=== PATIENT | female | born 1990 | race Caucasian/White ===

== ENCOUNTER 2016-12-16 21:10 | Inpatient (IN) | payer OTHER ==
[2016-12-16 22:43] VITALS: BMI 27.0
--- NOTE | 2016-12-16 23:00 | HP ---
COWS - Scale Resting Pulse: 1= NV 81-100 Sweatin= Chills/Flushing Restless Observation: 3= Extraneous Movement Pupil Size: 1= Pupils >than Normal Bone or Joint Aches: 1= Mild Discomfort Runny Nose/ Eye Tearin= Runny Nose/Eyes GI Upset > 30mins: 0= None Tremor Observation: 1= Tremor Cable, Not Seen Yawning Observation: 1= 1-2x During Session Anxiety or Irritability: 1=Feels Anxious/Irritable Goose Flesh Skin: 0=Smooth Skin COWS Score: 12 Admission ROS S - HPI Chief Complaint: WITHDRAWAL SYMPTOMS Allergies/Adverse Reactions: Allergies Allergy/AdvReac Type Severity Reaction Status Date / Time No Known Allergies Allergy Verified 12/16/16 22:55 History of Present Illness: 26 Y.O. WITH A 3 YEAR HISTORY OF HEROIN DEPENDENCE IS HERE SEEKING HER FIRST ADMISSION INTO DETOX. Exam Limitations: No Limitations - Ebola screening Have you traveled outside of the country in the last 21 days: No (N) Have you had contact with anyone from an Ebola affected area: No Have you been sick,other than usual withdrawal symptoms: No Do you have a fever: No - Review of Systems Constitutional: Chills, Diaphoresis, Loss of Appetite, Changes in sleep EENT: reports: Tearing Respiratory: reports: No Symptoms reported Cardiac: reports: Palpitations GI: reports: No Symptoms Reported : reports: No Symptoms Reported Musculoskeletal: reports: Back Pain, Neck Pain Integumentary: reports: No Symptoms Reported Neuro: reports: No Symptoms reported Endocrine: reports: No Symptoms Reported Hematology: reports: No Symptoms Reported Psychiatric: reports: Mood/Affect Appropiate, Anxious Other Systems: Reviewed and Negative Patient History - Patient Medical History Hx Anemia: No Hx Asthma: No Hx Chronic Obstructive Pulmonary Disease (COPD): No Hx Cancer: No Hx Cardiac Disorders: No Hx Congestive Heart Failure: No Hx Hypertension: No Hx Hypercholesterolemia: No Hx Pacemaker: No HX Cerebrovascular Accident: No Hx Seizures: No Hx Dementia: No Hx Diabetes: No Hx Gastrointestinal Disorders: No Hx Liver Disease: No Hx Genitourinary Disorders: No Hx Sexually Transmitted Disorders: No Hx Renal Disease (ESRD): No Hx Thyroid Disease: No Hx Human Immunodeficiency Virus (HIV): No Hx Hepatitis C: No Hx Depression: Yes (NO MEDS) Hx Suicide Attempt: Yes (NO MEDS ) Hx Bipolar Disorder: No Hx Schizophrenia: No - Patient Surgical History Past Surgical History: No - PPD History Previous Implant?: Yes Documented Results: Negative w/o proof PPD to be Administered?: Yes - Reproductive History Patient is a Female of Child Bearing Age (11 -55 yrs old): Yes Last Menstrual Period: 11/11/16 Patient : No - Smoking Cessation Smoking history: Current every day smoker Have you smoked in the past 12 months: Yes Aproximately how many cigarettes per day: 20 Hx Chewing Tobacco Use: No Initiated information on smoking cessation: Yes 'Breaking Loose' booklet given: 12/16/16 - Substance & Tx. History Hx Alcohol Use: No Hx Substance Use: Yes Substance Use Type: Heroin Hx Substance Use Treatment: No - Substances Abused Heroin Route: Injection Frequency: Daily Amount used: 5-10 BAGS Age of first use: 23 Date of Last Use: 12/16/16 Family Disease History - Family Disease History Family Disease History: Other: Father (ETOH DEPENDENCE ) Admission Physical Exam [facility] - Vital Signs Vital Signs: Vital Signs - 24 hr 12/16/16 22:40 Temperature 98.7 F Pulse Rate 89 Respiratory 18 Rate Blood Pressure 116/67 - Physical General Appearance: Yes: Anxious HEENTM: Yes: Hearing grossly Normal, Normocephalic, Normal Voice Respiratory: Yes: Chest Non-Tender, Lungs Clear, Normal Breath Sounds, No Respiratory Distress, No Accessory Muscle Use Neck: Yes: No masses,lesions,Nodules, Trachea in good position Breast: Yes: Breast Exam Deferred Cardiology: Yes: Regular Rhythm, Regular Rate Abdominal: Yes: Flat, Soft Genitourinary: Yes: Other (NO COMPLAINTS REPORTED) Back: Yes: Normal Inspection Musculoskeletal: Yes: Gait Steady, Pelvis Stable Extremities: Yes: Normal Capillary Refill, Normal Inspection, Normal Range of Motion, Non-Tender Neurological: Yes: texture artist II-XII NML intact, Fully Oriented, Alert, Normal Mood/ Affect, Normal Response Integumentary: Yes: Dry, Warm, Track Helms Lymphatic: Yes: Within Normal Limits - Diagnostic (1) Opioid dependence with withdrawal Current Visit: Yes Status: Chronic Cleared for Admission [facility] - Detox or Rehab [facility] Level of Care: Medically Managed Detox Regimen/Protocol: Methadone [facility] Breath Alcohol Content Breath Alcohol Content: 0 Urine Pregancy Test - Result Urine Test Results: Negative- NO Line Present Urine Drug Screen - Results Drug Screen Negative: No Urine Drug Screen Results: OPI-Opiates, BZO-Benzodiazepines, OXY-Oxycodone
[2016-12-16] MEDS ORDERED: MAGNESIUM HYDROX 2400MG/30ML ORAL SUSPENSION 30 ML CUP PO PRN (23:11)
[2016-12-16] MEDS ORDERED: IBUPROFEN 400 MG TABLET (FP) PO PRN (23:11)
[2016-12-16] MEDS ORDERED: MENTHOL/PHENOL 1 EACH UD MM PRN (23:11)
[2016-12-16] MEDS ORDERED: MAGNESIUM CITRATE 300 ML BOTTLE PO PRN (23:11)
[2016-12-16] MEDS ORDERED: LOPERAMIDE HCL 2 MG CAPSULE PO PRN (23:11)
[2016-12-16] MEDS ORDERED: guaiFENesin/D-METHORPHAN HB 10 ML UNIT-DOSE CUPS PO PRN (23:11)
[2016-12-16] MEDS ORDERED: ACETAMINOPHEN 325 MG TABLET (FP) PO PRN (23:11)
[2016-12-16] MEDS ORDERED: diphenhydrAMINE HCL 50 MG CAPSULE PO PRN (23:11)
[2016-12-16] MEDS ORDERED: MAG HYDROX/AL HYDROX/SIMETH 30 ML UNIT-DOSE CUP PO PRN (23:11)
[2016-12-16] MEDS ORDERED: P-EPHED 60MG/TRIPROLIDI 2.5MG TABLET PO PRN (23:11)
[2016-12-17] MEDS ORDERED: METHADONE HCL 10 MG TABLET (FOR DETOX USE ONLY) PO ONE ×3 (00:07→23:00)
[2016-12-17] MEDS: diazePAM 5 MG TABLET PO PRN ×5 (01:24→22:37)
[2016-12-17 10:12] LABS: MCH 30.1 pg (25.7-33.7); MCHC 34.9 g/dl (32.0-36.0); MEAN CELL VOLUME 86.3 fl (80-96); MEAN PLT VOLUME 9.6 fl (7.5-11.1); PLATELET COUNT 200 K/MM3 (134-434); RDW 13.1 % (11.6-15.6); WHITE BLOOD COUNT 6.3 K/mm3 (4.0-10.0)
[2016-12-17] MEDS: PRENATAL VITAMINS W/ FOLIC ACID TABLET (FP) PO SCH (10:38)
[2016-12-17] MEDS: NICOTINE 21 MG/24 HOURS TOPICAL PATCH TD SCH (10:38)
[2016-12-17 10:52] LABS: ALBUMIN 3.4 g/dl (3.4-5.0); ALK PHOS 80 U/L (45-117); ANION GAP 10 (8-16); BILIRUBIN,TOTAL 0.4 mg/dL (0.2-1.0); CALCIUM 9.2 mg/dL (8.5-10.1); CO2 26 mmol/L (21-32); COCKROFT - GAULT 118.9065; CREATININE 0.7 mg/dL (0.55-1.02); GLUCOSE,RANDOM 112 mg/dL (74-106); SGOT/AST 12 U/L (15-37); SGPT/ALT 19 U/L (12-78)
--- NOTE | 2016-12-17 11:34 | CONSULT ---
[facility] Psychiatric Consult - Data Date of interview: 12/17/16 Admission source: [facility] Identifying data: First admission to [facility] for this 26 y/o female seeking detox treatment for heroin dependence.Patient is single without children ,domiciled,currently unemployed and supported by relatives. Substance Abuse History: - Smoking Cessation. Smoking history: Current every day smoker. Have you smoked in the past 12 months: Yes. Aproximately how many cigarettes per day: 20. Hx Chewing Tobacco Use: No. Initiated information on smoking cessation: Yes. 'Breaking Loose' booklet given: 12/16/16. - Substance & Tx. History. Hx Alcohol Use: No. Hx Substance Use: Yes. Substance Use Type : Heroin. Hx Substance Use Treatment: No. - Substances Abused. Heroin. Route: Injection. Frequency: Daily. Amount used: 5-10 BAGS. Age of first use : 23. Date of Last Use: 12/16/16. Confirmed by patient. Medical History: Patient endorses good general health. Psychiatric History: No reported history of psychiatric hospitalizations.Patient indicates that,three years ago,she sought a psychiatric consultation for anxiety/depression (one or two visits).No prior exposure to psychotropic medications.Ms Keane denies any further contact wit psychiatric OPD care providers.No history of suicide attempts. Physical/Sexual Abuse/Trauma History: Patient denies. Additional Comment: Urine Drug Screen Results: OPI-Opiates, BZO-Benzodiazepines , OXY-Oxycodone.Noted. Mental Status Exam - Mental Status Exam Alert and Oriented to: Time, Place, Person Cognitive Function: Good Patient Appearance: Well Groomed Mood: Hopeful, Euthymic Affect: Appropriate, Normal Range Patient Behavior: Appropriate, Cooperative Speech Pattern: Clear Voice Loudness: Normal Thought Process: Goal Oriented Thought Disorder: Not Present Hallucinations: Denies Suicidal Ideation: Denies Homicidal Ideation: Denies Insight/Judgement: Fair Sleep: Poorly, Difficulty falling asleep Appetite: Good Muscle strength/Tone: Normal Gait/Station: Normal Psychiatric Findings - Problem List ([place] 1, 2,3) (1) Opioid dependence with withdrawal Current Visit: Yes Status: Acute (2) Nicotine dependence Current Visit: Yes Status: Acute (3) Insomnia Current Visit: Yes Status: Acute - Initial Treatment Plan Initial Treatment Plan: Psychoeducation.Detoxification.Chronic insomnia will be addressed with trazodone 50 mg po hs.Side effects/benefits discussed with the patient.She is in agreement with this careplan.Observation.
--- NOTE | 2016-12-17 12:01 | PN ---
BHS COWS - Scale Resting Pulse: 0= MS 80 or Below Sweatin=Flushed/Facial Moisture Restless Observation: 1= Difficult to Sit Still Pupil Size: 0= Normal to Room Light Bone or Joint Aches: 2= Severe Diffuse Aches Runny Nose/ Eye Tearin= None GI Upset > 30mins: 0= None Tremor Observation of Outstretched Hands: 2= Slight Tremor Visible Yawning Observation: 1= 1-2x During Session Anxiety or Irritability: 2=Irritable/Anxious Goose Flesh Skin: 3=Piloerection COWS Score: 13 BHS Progress Note (SOAP) Subjective: agitation sweats irritable chills interrupted sleep Objective: 12/17/16 12:00 Vital Signs Temperature 97.9 F 12/17/16 10:54 Pulse Rate 71 12/17/16 10:54 Respiratory Rate 16 12/17/16 10:54 Blood Pressure 112/75 12/17/16 10:54 O2 Sat by Pulse Oximetry (%) Laboratory Tests 12/17/16 12/17/16 12/17/16 07:00 07:00 07:00 WBC 6.3 RBC 4.37 Hgb 13.2 Hct 37.7 MCV 86.3 MCHC 34.9 RDW 13.1 Plt Count 200 MPV 9.6 Sodium 141 Potassium 4.0 Chloride 105 Carbon Dioxide 26 Anion Gap 10 BUN 9 Creatinine 0.7 Creat Clearance w eGFR > 60 Random Glucose 112 H Calcium 9.2 Total Bilirubin 0.4 AST 12 L ALT 19 Alkaline Phosphatase 80 Total Protein 6.0 L Albumin 3.4 RPR Titer Nonreactive labs pending awake/alert ambulating no acute distress Assessment: 12/17/16 12:01 withdrawal sx Plan: continue detox increase fluids
[2016-12-17 14:42] LABS: URINE APPEARANCE CLEAR; URINE BILIRUBIN NEGATIVE (NEGATIVE); URINE BLOOD NEGATIVE (NEGATIVE); URINE COLOR YELLOW; URINE GLUCOSE (UA) NEGATIVE (NEGATIVE); URINE KETONE NEGATIVE (NEGATIVE); URINE NITRITE NEGATIVE (NEGATIVE); URINE PROTEIN NEGATIVE (NEGATIVE); URINE UROBILINOGEN NEGATIVE E.U./dl (0.2-1.0)
[2016-12-17 14:55] LABS: URINE LEUK ESTERASE TRACE (NEGATIVE)
[2016-12-17 15:46] LABS: URINE BACTERIA MANY /hpf (NONE SEEN); URINE MUCUS MANY; URINE RBC 3 /hpf (0-3); URINE WBC 7 /hpf (3-5)
[2016-12-17] MEDS: THIAMINE HCL 100 MG TABLET (FP) PO SCH (22:37)
[2016-12-17] MEDS: traZODone HCL 50 MG TABLET (FP) PO SCH (22:37)
[2016-12-18] MEDS ORDERED: METHADONE HCL 10 MG TABLET (FOR DETOX USE ONLY) PO ONE (10:00)
[2016-12-18] MEDS: PRENATAL VITAMINS W/ FOLIC ACID TABLET (FP) PO SCH (11:08)
[2016-12-18] MEDS: NICOTINE 21 MG/24 HOURS TOPICAL PATCH TD SCH (11:09)
[2016-12-18] MEDS: diazePAM 5 MG TABLET PO PRN ×4 (11:11→23:21)
--- NOTE | 2016-12-18 11:27 | PN ---
BHS COWS - Scale Resting Pulse: 0= NE 80 or Below Sweatin=Flushed/Facial Moisture Restless Observation: 1= Difficult to Sit Still Pupil Size: 0= Normal to Room Light Bone or Joint Aches: 2= Severe Diffuse Aches Runny Nose/ Eye Tearin= Nasal Congestion GI Upset > 30mins: 0= None Tremor Observation of Outstretched Hands: 2= Slight Tremor Visible Yawning Observation: 0= None Anxiety or Irritability: 2=Irritable/Anxious Goose Flesh Skin: 0=Smooth Skin COWS Score: 10 S Progress Note (SOAP) Subjective: sweats mild shakes interrupted sleep mild body aches Objective: 12/18/16 11:33 Vital Signs Temperature 98.2 F 12/18/16 10:14 Pulse Rate 69 12/18/16 10:14 Respiratory Rate 16 12/18/16 10:14 Blood Pressure 129/55 12/18/16 10:14 O2 Sat by Pulse Oximetry (%) Laboratory Tests 12/17/16 12/17/16 12/17/16 07:00 07:00 07:00 WBC 6.3 RBC 4.37 Hgb 13.2 Hct 37.7 MCV 86.3 MCHC 34.9 RDW 13.1 Plt Count 200 MPV 9.6 Sodium 141 Potassium 4.0 Chloride 105 Carbon Dioxide 26 Anion Gap 10 BUN 9 Creatinine 0.7 Creat Clearance w eGFR > 60 Random Glucose 112 H Calcium 9.2 Total Bilirubin 0.4 AST 12 L ALT 19 Alkaline Phosphatase 80 Total Protein 6.0 L Albumin 3.4 Urine Color Urine Appearance Urine pH Ur Specific [place] Urine Protein Urine Glucose (UA) Urine Ketones Urine Blood Urine Nitrite Urine Bilirubin Urine Urobilinogen Ur Leukocyte Esterase Urine RBC Urine WBC Ur Epithelial Cells Urine Bacteria Urine Mucus RPR Titer Nonreactive 12/17/16 10:45 WBC RBC Hgb Hct MCV MCHC RDW Plt Count MPV Sodium Potassium Chloride Carbon Dioxide Anion Gap BUN Creatinine Creat Clearance w eGFR Random Glucose Calcium Total Bilirubin AST ALT Alkaline Phosphatase Total Protein Albumin Urine Color Yellow Urine Appearance Clear Urine pH 5.0 Ur Specific [place] 1.025 Urine Protein Negative Urine Glucose (UA) Negative Urine Ketones Negative Urine Blood Negative Urine Nitrite Negative Urine Bilirubin Negative Urine Urobilinogen Negative Ur Leukocyte Esterase Trace H Urine RBC 3 Urine WBC 7 Ur Epithelial Cells Rare Urine Bacteria Many Urine Mucus Many RPR Titer awake/alert ambulating no acute distress Assessment: 12/18/16 11:34 withdrawal sx Plan: continue detox increase fluids
--- NOTE | 2016-12-18 11:40 | EKG ---
Test Reason : Blood Pressure : / mmHG Vent. Rate : 068 BPM Atrial Rate : 068 BPM P-R Int : 174 ms QRS Dur : 084 ms QT Int : 376 ms P-R-T Axes : 029 032 036 degrees QTc Int : 399 ms SINUS RHYTHM WITH MARKED SINUS ARRHYTHMIA OTHERWISE NORMAL ECG NO PREVIOUS ECGS AVAILABLE Confirmed by MATTY MONTENEGRO, LORI ([id number]) on 12/18/2016 11:40:16 AM Referred By: Confirmed By:LORI STARR MD
[2016-12-18] MEDS: NICOTINE POLACRILEX 2 MG GUM BC PRN ×2 (12:45→17:43)
[2016-12-18] MEDS: hydrOXYzine PAMOATE 50 MG CAPSULE (FP) PO PRN ×2 (17:43→23:21)
[2016-12-18] MEDS: traZODone HCL 50 MG TABLET (FP) PO SCH (22:57)
[2016-12-18] MEDS: THIAMINE HCL 100 MG TABLET (FP) PO SCH (22:58)
[2016-12-19] MEDS: diazePAM 5 MG TABLET PO PRN ×5 (05:50→23:11)
[2016-12-19] MEDS: NICOTINE POLACRILEX 2 MG GUM BC PRN ×3 (08:53→18:56)
[2016-12-19] MEDS ORDERED: METHADONE HCL 5 MG TABLET (FOR DETOX USE ONLY) PO ONE (10:00)
--- NOTE | 2016-12-19 10:25 | PN ---
Psychiatric Progress Note Vital Signs: Vital Signs Period Temp Pulse Resp BP Sys/Lindsay Pulse Ox Last 24 Hr 96.1 F-98.1 F 57-92 16-18 94-120/59-64 Date of Session: 12/19/16 Chief Complaint:: Insomnia HPI: Patient reports severe insomnia, reports has been taking prior to admission Ambien 10mg pom qhs Current Medications: Active Medications Generic Name Dose Route Start Last Admin Trade Name Freq PRN Reason Stop Dose Admin Acetaminophen 650 mg 12/16/16 23:11 Tylenol - PO Q4H PRN FEVER OR PAIN Al Hydroxide/Mg Hydroxide 30 ml 12/16/16 23:11 Mylanta Oral Suspension - PO Q6H PRN DYSPEPSIA Diazepam 10 mg 12/17/16 00:07 12/19/16 05:50 Valium - PO 12/20/16 00:06 10 mg Q4H PRN Administration WITHDRAWAL(CONT SUBST) Diphenhydramine HCl 50 mg 12/16/16 23:11 12/18/16 22:57 Benadryl - PO 50 mg HSMR1 PRN Administration INSOMNIA Eucalyptus/Menthol/Phenol/Sorbitol 1 each 12/16/16 23:11 Cepastat Lozenge - MM Q4H PRN SORE THROAT Guaifenesin 10 ml 12/16/16 23:11 Robitussin Dm - PO Q6H PRN COUGH Hydroxyzine Pamoate 50 mg 12/16/16 23:11 12/18/16 23:21 Vistaril - PO 50 mg Q4H PRN Administration AGITATION Ibuprofen 400 mg 12/16/16 23:11 Motrin - PO Q6H PRN SEVERE PAIN Loperamide HCl 4 mg 12/16/16 23:11 Imodium - PO Q6H PRN DIARRHEA Magnesium Citrate 300 ml 12/16/16 23:11 Citroma - PO Q48H PRN CONSTIPATION Magnesium Hydroxide 30 ml 12/16/16 23:11 Milk Of Magnesia - PO DAILY PRN CONSTIPATION Methadone HCl 10 mg 12/21/16 10:00 Dolophine - PO 12/21/16 10:01 ONCE ONE Methadone HCl 15 mg 12/20/16 10:00 Dolophine - PO 12/20/16 10:01 ONCE ONE Methadone HCl 5 mg 12/22/16 06:00 Dolophine - PO 12/22/16 06:01 ONCE@0600 ONE Nicotine 21 mg 12/17/16 10:00 12/18/16 11:09 Nicoderm Patch - TD 21 mg DAILY JOE Administration Nicotine Polacrilex 2 mg 12/16/16 23:11 12/19/16 08:53 Nicorette Gum - BC 2 mg Q2H PRN Administration NICOTINE REPLACEMENT RX Multivit/Folic Acid/Iron 1 tab 12/17/16 10:00 12/18/16 11:08 Vitamins (Sjr) - PO 1 tab DAILY JOE Administration Pseudoephedrine/Triprolidine 1 combo 12/16/16 23:11 Actifed - PO TID PRN NASAL CONGESTION Thiamine HCl 100 mg 12/17/16 22:00 12/18/16 22:58 Vitamin B1 - PO 100 mg HS JOE Administration Trazodone HCl 50 mg 12/17/16 22:00 12/18/16 22:57 Desyrel - PO 50 mg HS JOE Administration Zolpidem Tartrate 10 mg 12/19/16 22:00 Ambien - PO 12/22/16 21:59 HS PRN INSOMNIA Medication(s) Change(s): Ambien 10mg pom qhs Mental Status Exam - Mental Status Exam Alert and Oriented to: Person Cognitive Function: Fair Patient Appearance: Unkempt Mood: Anxious Affect: Mood Congruent Patient Behavior: Cooperative Speech Pattern: Appropriate Voice Loudness: Mildly Soft/Quiet Thought Process: Goal Oriented Thought Disorder: Being Controlled Hallucinations: Denies Suicidal Ideation: Denies Homicidal Ideation: Denies Insight/Judgement: Fair Sleep: Difficulty falling asleep Appetite: Weight gain Muscle strength/Tone: Normal Gait/Station: Shuffling Additional Comments: Ambien 10mg pom qhs Psychiatric Treatment Plan - Problem List (1) Insomnia Current Visit: Yes (2) Nicotine dependence Current Visit: Yes (3) Opioid dependence with withdrawal Current Visit: Yes (4) Opioid-induced sleep disorder, insomnia type, with onset during discontinuation/withdrawal Current Visit: Yes (5) Drug-induced mood disorder Current Visit: Yes Initial treatment plan: Ambien 10mg pom qhs
[2016-12-19] MEDS: PRENATAL VITAMINS W/ FOLIC ACID TABLET (FP) PO SCH (10:43)
[2016-12-19] MEDS: NICOTINE 21 MG/24 HOURS TOPICAL PATCH TD SCH (10:45)
--- NOTE | 2016-12-19 11:25 | PN ---
BHS Progress Note (SOAP) Subjective: irritable sweats little shakes chills interrupted sleep Objective: 12/19/16 11:24 Vital Signs Temperature 97.3 F L 12/19/16 09:54 Pulse Rate 90 12/19/16 09:54 Respiratory Rate 18 12/19/16 09:54 Blood Pressure 102/60 12/19/16 09:54 O2 Sat by Pulse Oximetry (%) awake/alert ambulating no acute distress Assessment: 12/19/16 11:25 withdrawal sx Plan: continue detox increase fluids
[2016-12-19] MEDS: QUEtiapine FUMARATE 50 MG TABLET PO PRN ×2 (12:42→18:56)
[2016-12-19] MEDS: THIAMINE HCL 100 MG TABLET (FP) PO SCH (22:28)
[2016-12-19] MEDS: ZOLPIDEM TARTRATE 10 MG TABLET (PARK CARE ONLY) PO PRN (22:28)
[2016-12-19] MEDS: traZODone HCL 50 MG TABLET (FP) PO SCH (22:28)
[2016-12-20] MEDS ORDERED: METHADONE HCL 5 MG TABLET (FOR DETOX USE ONLY) PO ONE (10:00)
--- NOTE | 2016-12-20 10:53 | PN ---
BHS Progress Note (SOAP) Subjective: irritable agitation sweats Objective: 12/20/16 10:52 Vital Signs Temperature 97.5 F L 12/20/16 10:20 Pulse Rate 78 12/20/16 10:20 Respiratory Rate 18 12/20/16 10:20 Blood Pressure 113/65 12/20/16 10:20 O2 Sat by Pulse Oximetry (%) awake/alert ambulating no acute distress Assessment: 12/20/16 10:52 withdrawal sx Plan: continue detox increase fluids
[2016-12-20] MEDS: PRENATAL VITAMINS W/ FOLIC ACID TABLET (FP) PO SCH (11:04)
[2016-12-20] MEDS: QUEtiapine FUMARATE 50 MG TABLET PO PRN ×3 (11:05→22:41)
[2016-12-20] MEDS: NICOTINE POLACRILEX 2 MG GUM BC PRN ×4 (11:06→22:42)
[2016-12-20] MEDS: NICOTINE 21 MG/24 HOURS TOPICAL PATCH TD SCH (11:08)
[2016-12-20] MEDS: hydrOXYzine PAMOATE 50 MG CAPSULE (FP) PO PRN ×2 (14:14→19:59)
[2016-12-20] MEDS: traZODone HCL 50 MG TABLET (FP) PO SCH (22:40)
[2016-12-20] MEDS: ZOLPIDEM TARTRATE 10 MG TABLET (PARK CARE ONLY) PO PRN (22:40)
[2016-12-20] MEDS: THIAMINE HCL 100 MG TABLET (FP) PO SCH (22:41)
[2016-12-21] MEDS: QUEtiapine FUMARATE 50 MG TABLET PO PRN (05:41)
[2016-12-21 06:28] VITALS: BP 107/58; PULSE 88; TEMP 98.1
[2016-12-21] MEDS ORDERED: METHADONE HCL 10 MG TABLET (FOR DETOX USE ONLY) PO ONE (10:00)
[2016-12-21] MEDS: hydrOXYzine PAMOATE 50 MG CAPSULE (FP) PO PRN (10:36)
[2016-12-21] MEDS: NICOTINE POLACRILEX 2 MG GUM BC PRN (10:36)
[2016-12-21] MEDS: PRENATAL VITAMINS W/ FOLIC ACID TABLET (FP) PO SCH (10:36)
[2016-12-21] MEDS: NICOTINE 21 MG/24 HOURS TOPICAL PATCH TD SCH (10:38)
--- NOTE | 2016-12-21 10:49 | PN ---
S Progress Note (SOAP) Subjective: ALERT,NO COMPLAINT Objective: 12/21/16 10:47 Vital Signs Temperature 98.1 F 12/21/16 06:27 Pulse Rate 88 12/21/16 06:27 Respiratory Rate 18 12/21/16 06:27 Blood Pressure 107/58 12/21/16 06:27 O2 Sat by Pulse Oximetry (%) Assessment: 12/21/16 10:47 PATENT IS STABLE FOR DISCHARGE Plan: DISCHARGE TODAY,FOLLOW UP WITH AFTER CARE PROGRAM ARRANGEMENT
--- NOTE | 2016-12-21 10:52 | DS ---
[facility] Detox Discharge Summary Admission Date: 12/16/16 Discharge Date: 12/21/16 - History Present History: Opioid Dependence Additional Comments: FOLLOW UP WITH AFTER CARE PROGRAM ARRANGEMENT Pertinent Past History: NICOTINE DEPENDENCE - Physical Exam Results Vital Signs: Vital Signs Temperature 98.1 F 12/21/16 06:27 Pulse Rate 88 12/21/16 06:27 Respiratory Rate 18 12/21/16 06:27 Blood Pressure 107/58 12/21/16 06:27 O2 Sat by Pulse Oximetry (%) Pertinent Admission Physical Exam Findings: WITHDRAWAL SYMPTOM - Treatment Hospital Course: Detox Protocol Followed, Detoxed Safely, Responded well, Discharged Condition Good Patient has Accepted a Rehab Referral to: DECLINED - Medication Discharge Medications: Ambulatory Orders NK [No Known Home Medication] 12/17/16 - AMA Did Patient Leave Against Medical Advice: No
[2016-12-22] MEDS ORDERED: METHADONE HCL 5 MG TABLET (FOR DETOX USE ONLY) PO ONE (06:00)
== END 2016-12-21 11:15 | disposition home or self-care (01) | DRG 773 ==
LOC: YASAS 21:10 → Y6N 23:12
PROVIDERS: ADMIT Internal Medicine; ATTEND Internal Medicine
PROC: HZ2ZZZZ Detoxification Services for Substance Abuse Treatment (ICD-10-PCS; principal; 2016-12-16)
DX: F11.23 Opioid dependence with withdrawal (principal); F11.282 Opioid dependence with opioid-induced sleep disorder; F17.210 Nicotine dependence, cigarettes, uncomplicated; F19.24 Other psychoactive substance dependence with psychoactive substance-induced mood disorder; G47.00 Insomnia, unspecified
CPT/HCPCS: 36415; 80053; 81003; 81015; 85027; 86593; 93005; 93010

== ENCOUNTER 2017-01-29 08:19 | Inpatient (IN) | payer OTHER ==
[2017-01-29 09:45] VITALS: BMI 28.2
--- NOTE | 2017-01-29 12:44 | HP ---
COWS - Scale Resting Pulse: 0= MS 80 or Below Sweatin= Chills/Flushing Restless Observation: 3= Extraneous Movement Pupil Size: 0= Normal to Room Light Bone or Joint Aches: 4=Acute Joint/Muscle Pain Runny Nose/ Eye Tearin= Nasal Congestion GI Upset > 30mins: 0= None Tremor Observation: 1= Tremor [place], Not Seen Yawning Observation: 2= >3x During Session Anxiety or Irritability: 2=Irritable/Anxious Goose Flesh Skin: 0=Smooth Skin COWS Score: 14 Admission ROS S - HPI Chief Complaint: DETOX TX FOR HEROIN DEPENDENCE Allergies/Adverse Reactions: Allergies Allergy/AdvReac Type Severity Reaction Status Date / Time No Known Allergies Allergy Verified 01/29/17 10:35 History of Present Illness: 26 Y/O FEMALE WITH A HX OF HEROIN DEPENDENCE SEEKING DETOX [place] Exam Limitations: No Limitations - Ebola screening Have you traveled outside of the country in the last 21 days: No Have you had contact with anyone from an Ebola affected area: No Have you been sick,other than usual withdrawal symptoms: No Do you have a fever: No - Review of Systems Constitutional: Chills, Night Sweats, Changes in sleep ("WHEN NOT I'M NOT HIGH") EENT: reports: Blurred Vision (WEARS CONTACT LENSES), Tearing, Nose Congestion, Dental Problems (CRACKED TOOTH/CAVITY) Respiratory: reports: Cough (DUE TO CIGARETTE SMOKING), Productive cough Cardiac: reports: No Symptoms Reported GI: reports: Constipated, Abdominal cramping : reports: No Symptoms Reported Musculoskeletal: reports: Back Pain, Joint Pain, Muscle Pain Integumentary: reports: Bruising (IVD INJ SITES ON BOTH ELBOWS) Neuro: reports: Headache (HX MIGRAINES), Numbness, Tingling, Tremors Endocrine: reports: No Symptoms Reported Hematology: reports: No Symptoms Reported Psychiatric: reports: Orientated x3, Anxious, Depressed Other Systems: Reviewed and Negative Patient History - Patient Medical History Hx Anemia: No Hx Asthma: No Hx Chronic Obstructive Pulmonary Disease (COPD): No Hx Cancer: No Hx Cardiac Disorders: No Hx Congestive Heart Failure: No Hx Hypertension: No Hx Hypercholesterolemia: No Hx Pacemaker: No HX Cerebrovascular Accident: No Hx Seizures: No Hx Dementia: No Hx Diabetes: No Hx Gastrointestinal Disorders: No Hx Liver Disease: No Hx Genitourinary Disorders: No Hx Sexually Transmitted Disorders: No Hx Renal Disease (ESRD): No Hx Thyroid Disease: No Hx Human Immunodeficiency Virus (HIV): No (NEGATIVE HX) Hx Hepatitis C: No Hx Depression: Yes (NOT CURRENTLY ON MED) Hx Suicide Attempt: No (DENIES) Hx Bipolar Disorder: No Hx Schizophrenia: No - Patient Surgical History Past Surgical History: No Hx Neurologic Surgery: No Hx Cataract Extraction: No Hx Cardiac Surgery: No Hx Lung Surgery: No Hx Breast Surgery: No Hx Breast Biopsy: No Hx Abdominal Surgery: No Hx Appendectomy: No Hx Cholecystectomy: No Hx Genitourinary Surgery: No Hx Section: No Hx Orthopedic Surgery: No Hx Hysterectomy: No Anesthesia Reaction: No - PPD History Previous Implant?: Yes Documented Results: Negative w/proof Implanted On Prior [facility] Admission?: Yes Date: 12/19/16 Results: 0 MM PPD to be Administered?: No - Reproductive History Patient is a Female of Child Bearing Age (11 -55 yrs old): Yes Last Menstrual Period: 12/12/16 LMP comment: IRRGULAR CYCLE-EVERY OTHER MONTH Patient : No - Smoking Cessation Smoking history: Current every day smoker Have you smoked in the past 12 months: Yes Aproximately how many cigarettes per day: 20 Hx Chewing Tobacco Use: No Initiated information on smoking cessation: Yes 'Breaking Loose' booklet given: 01/29/17 - Substance & Tx. History Hx Alcohol Use: No (DENIES) Hx Substance Use: Yes (HEROIN) Substance Use Type: Heroin Hx Substance Use Treatment: Yes (LAST TX AT [facility] 12/2016) - Substances Abused Heroin Route: Injection Frequency: Daily Amount used: 5 BAGS Age of first use: 23 Date of Last Use: 01/29/17 Family Disease History - Family Disease History Family Disease History: Other: Father (ETOH DEPENDENCE ) Admission Physical Exam BHS - Vital Signs Vital Signs: Vital Signs - 24 hr 01/29/17 09:36 Temperature 97.7 F Pulse Rate 71 Respiratory 18 Rate Blood Pressure 113/69 - Physical General Appearance: Yes: Moderate Distress, Irritable, Anxious HEENTM: Yes: EOMI, Normocephalic, ABEL, Pharynx Normal Respiratory: Yes: Chest Non-Tender, Lungs Clear, Normal Breath Sounds, No Respiratory Distress Neck: Yes: No masses,lesions,Nodules, Supple, Trachea in good position Breast: Yes: Breast Exam Deferred Cardiology: Yes: Regular Rhythm, Regular Rate, S1, S2 Abdominal: Yes: Normal Bowel Sounds, Non Tender, Flat, Soft Genitourinary: Yes: Other (N/C) Back: Yes: Within Normal Limits Musculoskeletal: Yes: full range of Motion, Gait Steady Extremities: Yes: Normal Range of Motion, Non-Tender Neurological: 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: 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 NML intact, Fully Oriented, Alert Integumentary: Yes: Dry, Warm, Track Helms (BOTH ELBOWS-NO REDNESS OR SWELLING.) Lymphatic: Yes: Within Normal Limits - Diagnostic (1) Nicotine dependence Status: Acute Qualifiers: Nicotine product type: cigarettes Substance use status: in withdrawal Qualified Code(s): F17.213 - Nicotine dependence, cigarettes, with withdrawal (2) Opioid dependence with withdrawal Status: Acute Cleared for Admission [facility] - Detox or Rehab [facility] Level of Care: Medically Managed Detox Regimen/Protocol: Methadone [facility] Breath Alcohol Content Breath Alcohol Content: 0 Urine Pregancy Test - Result Urine Test Results: Negative- NO Line Present Urine Drug Screen - Results Drug Screen Negative: No Urine Drug Screen Results: OPI-Opiates, OXY-Oxycodone
[2017-01-29] MEDS ORDERED: LOPERAMIDE HCL 2 MG CAPSULE PO PRN (12:52)
[2017-01-29] MEDS ORDERED: P-EPHED 60MG/TRIPROLIDI 2.5MG TABLET PO PRN (12:52)
[2017-01-29] MEDS ORDERED: MAGNESIUM CITRATE 300 ML BOTTLE PO PRN (12:52)
[2017-01-29] MEDS ORDERED: MAG HYDROX/AL HYDROX/SIMETH 30 ML UNIT-DOSE CUP PO PRN (12:52)
[2017-01-29] MEDS ORDERED: MENTHOL/PHENOL 1 EACH UD MM PRN (12:52)
[2017-01-29] MEDS ORDERED: diphenhydrAMINE HCL 50 MG CAPSULE PO PRN (12:52)
[2017-01-29] MEDS ORDERED: guaiFENesin/D-METHORPHAN HB 10 ML UNIT-DOSE CUPS PO PRN (12:52)
[2017-01-29] MEDS ORDERED: IBUPROFEN 400 MG TABLET (FP) PO PRN (12:52)
[2017-01-29] MEDS ORDERED: MAGNESIUM HYDROX 2400MG/30ML ORAL SUSPENSION 30 ML CUP PO PRN (12:52)
[2017-01-29] MEDS ORDERED: ACETAMINOPHEN 325 MG TABLET (FP) PO PRN (12:52)
[2017-01-29] MEDS ORDERED: METHADONE HCL 10 MG TABLET (FOR DETOX USE ONLY) PO ONE ×2 (13:50→23:00)
[2017-01-29] MEDS: NICOTINE 21 MG/24 HOURS TOPICAL PATCH TD SCH (14:14)
[2017-01-29] MEDS: diazePAM 5 MG TABLET PO PRN ×2 (14:14→22:47)
[2017-01-29 17:14] LABS: MCHC 33.4 g/dl (32.0-36.0); MEAN CELL VOLUME 86.7 fl (80-96); MEAN PLT VOLUME 9.4 fl (7.5-11.1); PLATELET COUNT 233 K/MM3 (134-434); RDW 13.5 % (11.6-15.6)
[2017-01-29 17:42] LABS: URINE APPEARANCE CLEAR; URINE BILIRUBIN NEGATIVE (NEGATIVE); URINE BLOOD NEGATIVE (NEGATIVE); URINE COLOR YELLOW; URINE GLUCOSE (UA) NEGATIVE (NEGATIVE); URINE KETONE TRACE (NEGATIVE); URINE LEUK ESTERASE NEGATIVE (NEGATIVE); URINE NITRITE NEGATIVE (NEGATIVE); URINE PROTEIN NEGATIVE (NEGATIVE)
[2017-01-29 17:50] LABS: ALBUMIN 4.1 g/dl (3.4-5.0); ANION GAP 7 (8-16); CALCIUM 9.2 mg/dL (8.5-10.1); CO2 27 mmol/L (21-32); GLUCOSE,RANDOM 97 mg/dL (74-106)
[2017-01-29 17:55] LABS: ALK PHOS 80 U/L (45-117); BILIRUBIN,TOTAL 0.6 mg/dL (0.2-1.0); CREATININE 0.7 mg/dL (0.55-1.02); SGOT/AST 17 U/L (15-37); SGPT/ALT 19 U/L (12-78); TOT PROT 6.8 g/dl (6.4-8.2)
[2017-01-29] MEDS: CYCLOBENZAPRINE HCL 10 MG TABLET (FP) PO PRN (22:47)
[2017-01-29] MEDS: THIAMINE HCL 100 MG TABLET (FP) PO SCH (22:47)
[2017-01-29] MEDS: NICOTINE POLACRILEX 4 MG GUM BUC PRN (23:16)
[2017-01-30] MEDS ORDERED: METHADONE HCL 10 MG TABLET (FOR DETOX USE ONLY) PO ONE (10:00)
--- NOTE | 2017-01-30 10:04 | CONSULT ---
[facility] Psychiatric Consult - Data Date of interview: 01/30/17 Admission source: [facility] Identifying data: This is 26 years old female with no psychiatric hospitalization history intoxicated with: Heroin and Nicotine Substance Abuse History: - Smoking Cessation. Smoking history: Current every day smoker. Have you smoked in the past 12 months: Yes. Aproximately how many cigarettes per day: 20. Hx Chewing Tobacco Use: No. Initiated information on smoking cessation: Yes. 'Breaking Loose' booklet given: 01/29/17. - Substance & Tx. History. Hx Alcohol Use: No (DENIES). Hx Substance Use: Yes (HEROIN). Substance Use Type: Heroin. Hx Substance Use Treatment: Yes (LAST [place] AT [facility] 12/2016). - Substances Abused. Heroin. Route: Injection. Frequency: Daily. Amount used: 5 BAGS. Age of first use: 23. Date of Last Use: 01/29/ Medical History: Denies any significant medical issues Psychiatric History: Patient reprots insomnia, asking for Ambien 10mg po qhs she has been using prior to admission Physical/Sexual Abuse/Trauma History: Denies Additional Comment: Ambien 10mg po qhs Mental Status Exam - Mental Status Exam Alert and Oriented to: Person Cognitive Function: Fair Patient Appearance: Well Groomed Mood: Apprehensive Affect: Mood Congruent Patient Behavior: Cooperative Speech Pattern: Appropriate Voice Loudness: Normal Thought Process: Goal Oriented Thought Disorder: Being Controlled Hallucinations: Denies Suicidal Ideation: Denies Homicidal Ideation: Denies Insight/Judgement: Fair Sleep: Difficulty falling asleep Appetite: Fair Muscle strength/Tone: Normal Gait/Station: Normal Additional Comments: Ambien 10mg po qhs Psychiatric Findings - Problem List ([place] 1, 2,3) (1) Nicotine dependence Current Visit: Yes Status: Acute Qualifiers: Nicotine product type: cigarettes Substance use status: in withdrawal Qualified Code(s): F17.213 - Nicotine dependence, cigarettes, with withdrawal (2) Opioid dependence with withdrawal Current Visit: Yes Status: Acute (3) Drug-induced mood disorder Current Visit: No Status: Acute (4) Opioid-induced sleep disorder, insomnia type, with onset during discontinuation/withdrawal Current Visit: No Status: Acute - Initial Treatment Plan Initial Treatment Plan: Ambien 10mg po qhs
[2017-01-30] MEDS: NICOTINE 21 MG/24 HOURS TOPICAL PATCH TD SCH (10:52)
[2017-01-30] MEDS: PRENATAL VITAMINS W/ FOLIC ACID TABLET (FP) PO SCH (10:52)
[2017-01-30] MEDS: diazePAM 5 MG TABLET PO PRN ×3 (10:53→22:52)
[2017-01-30] MEDS: NICOTINE POLACRILEX 4 MG GUM BUC PRN ×3 (10:58→18:05)
--- NOTE | 2017-01-30 12:50 | PN ---
BHS COWS - Scale Resting Pulse: 0= [place] 80 or Below Sweatin= Chills/Flushing Restless Observation: 3= Extraneous Movement Pupil Size: 1= Pupils >than Normal Bone or Joint Aches: 2= Severe Diffuse Aches Runny Nose/ Eye Tearin= Runny Nose/Eyes GI Upset > 30mins: 3= Vomiting/Diarrhea Tremor Observation of Outstretched Hands: 2= Slight Tremor Visible Yawning Observation: 1= 1-2x During Session Anxiety or Irritability: 2=Irritable/Anxious Goose Flesh Skin: 0=Smooth Skin COWS Score: 17 S Progress Note (SOAP) Subjective: ALERT,IRRITABLE,ANXIOUS,INTERRUPTED SLEEP,PAIN IN THE BODY AND BACK Objective: 01/30/17 12:48 Vital Signs Temperature 96.6 F L 01/30/17 10:00 Pulse Rate 78 01/30/17 10:00 Respiratory Rate 18 01/30/17 10:00 Blood Pressure 121/69 01/30/17 10:00 O2 Sat by Pulse Oximetry (%) EKG NSR,NORMAL ECG Laboratory Last Values WBC 6.0 K/mm3 (4.0-10.0) 01/29/17 15:00 RBC 4.78 M/mm3 (3.60-5.2) 01/29/17 15:00 Hgb 13.9 GM/dL (10.7-15.3) 01/29/17 15:00 Hct 41.4 % (32.4-45.2) 01/29/17 15:00 MCV 86.7 fl (80-96) 01/29/17 15:00 MCH 29.0 pg (25.7-33.7) 01/29/17 15:00 MCHC 33.4 g/dl (32.0-36.0) 01/29/17 15:00 RDW 13.5 % (11.6-15.6) 01/29/17 15:00 Plt Count 233 K/MM3 (134-434) 01/29/17 15:00 MPV 9.4 fl (7.5-11.1) 01/29/17 15:00 Sodium 141 mmol/L (136-145) 01/29/17 15:00 Potassium 4.4 mmol/L (3.5-5.1) 01/29/17 15:00 Chloride 107 mmol/L (98-107) 01/29/17 15:00 Carbon Dioxide 27 mmol/L (21-32) 01/29/17 15:00 Anion Gap 7 (8-16) L 01/29/17 15:00 BUN 12 mg/dL (7-18) D 01/29/17 15:00 Creatinine 0.7 mg/dL (0.55-1.02) 01/29/17 15:00 Creat Clearance w eGFR > 60 (>60) 01/29/17 15:00 Random Glucose 97 mg/dL (74-106) 01/29/17 15:00 Calcium 9.2 mg/dL (8.5-10.1) 01/29/17 15:00 Total Bilirubin 0.6 mg/dL (0.2-1.0) D 01/29/17 15:00 AST 17 U/L (15-37) D 01/29/17 15:00 ALT 19 U/L (12-78) 01/29/17 15:00 Alkaline Phosphatase 80 U/L (45-117) 01/29/17 15:00 Total Protein 6.8 g/dl (6.4-8.2) 01/29/17 15:00 Albumin 4.1 g/dl (3.4-5.0) D 01/29/17 15:00 Urine Color Yellow 01/29/17 14:00 Urine Appearance Clear 01/29/17 14:00 Urine pH 6.0 (5.0-8.0) 01/29/17 14:00 Ur Specific [place] 1.020 (1.005-1.025) 01/29/17 14:00 Urine Protein Negative (NEGATIVE) 01/29/17 14:00 Urine Glucose (UA) Negative (NEGATIVE) 01/29/17 14:00 Urine Ketones Trace (NEGATIVE) H 01/29/17 14:00 Urine Blood Negative (NEGATIVE) 01/29/17 14:00 Urine Nitrite Negative (NEGATIVE) 01/29/17 14:00 Urine Bilirubin Negative (NEGATIVE) 01/29/17 14:00 Urine Urobilinogen 2.0 mg/dL (0.2-1.0) H 01/29/17 14:00 Ur Leukocyte Esterase Negative (NEGATIVE) 01/29/17 14:00 RPR Titer Nonreactive (NONREACTIVE) 01/29/17 15:00 Assessment: 01/30/17 12:49 WITHDRAWAL SYMPTOM Plan: CONTINUE DETOX
--- NOTE | 2017-01-30 16:39 | EKG ---
Test Reason : Blood Pressure : / mmHG Vent. Rate : 068 BPM Atrial Rate : 068 BPM P-R Int : 144 ms QRS Dur : 082 ms QT Int : 384 ms P-R-T Axes : 004 012 018 degrees QTc Int : 408 ms NORMAL SINUS RHYTHM NORMAL ECG WHEN COMPARED WITH ECG OF 17-DEC-2016 00:13, NO SIGNIFICANT CHANGE WAS FOUND Confirmed by ALEX DELGADO MD ([id number]) on 01/30/2017 4:38:48 PM Referred By: Bacilio Clark Confirmed By:ALEX DELGADO MD
[2017-01-30] MEDS: hydrOXYzine PAMOATE 25 MG CAPSULE (FP) PO PRN (18:05)
[2017-01-30] MEDS: CYCLOBENZAPRINE HCL 10 MG TABLET (FP) PO PRN (22:52)
[2017-01-30] MEDS: THIAMINE HCL 100 MG TABLET (FP) PO SCH (22:52)
[2017-01-30] MEDS: ZOLPIDEM TARTRATE 10 MG TABLET (PARK CARE ONLY) PO PRN (22:52)
[2017-01-31] MEDS ORDERED: METHADONE HCL 5 MG TABLET (FOR DETOX USE ONLY) PO ONE (10:00)
[2017-01-31] MEDS: NICOTINE 21 MG/24 HOURS TOPICAL PATCH TD SCH (11:12)
[2017-01-31] MEDS: PRENATAL VITAMINS W/ FOLIC ACID TABLET (FP) PO SCH (11:12)
[2017-01-31] MEDS: CYCLOBENZAPRINE HCL 10 MG TABLET (FP) PO PRN ×2 (11:13→22:47)
[2017-01-31] MEDS: diazePAM 5 MG TABLET PO PRN ×3 (11:13→22:47)
[2017-01-31] MEDS: NICOTINE POLACRILEX 4 MG GUM BUC PRN ×3 (11:13→20:03)
[2017-01-31] MEDS ORDERED: LIDOCAINE VISCOUS 2% ORAL/TOP 20 ML UNIT-DOSE CUP MM PRN (12:04)
--- NOTE | 2017-01-31 12:10 | PN ---
BHS COWS - Scale Resting Pulse: 0= [place] 80 or Below Sweatin= Chills/Flushing Restless Observation: 1= Difficult to Sit Still Pupil Size: 1= Pupils >than Normal Bone or Joint Aches: 1= Mild Discomfort Runny Nose/ Eye Tearin= Nasal Congestion GI Upset > 30mins: 1= Stomach Cramp Tremor Observation of Outstretched Hands: 1= Tremor [place], Not Seen Yawning Observation: 0= None Anxiety or Irritability: 1=Feels Anxious/Irritable Goose Flesh Skin: 0=Smooth Skin COWS Score: 8 BHS Progress Note (SOAP) Subjective: interrupted sleep, leg pains , left lower molar pain Objective: 01/31/17 12:09 Vital Signs Temperature 97.9 F 01/31/17 10:00 Pulse Rate 76 01/31/17 10:00 Respiratory Rate 18 01/31/17 10:00 Blood Pressure 109/55 01/31/17 10:00 O2 Sat by Pulse Oximetry (%) Laboratory Last Values WBC 6.0 K/mm3 (4.0-10.0) 01/29/17 15:00 RBC 4.78 M/mm3 (3.60-5.2) 01/29/17 15:00 Hgb 13.9 GM/dL (10.7-15.3) 01/29/17 15:00 Hct 41.4 % (32.4-45.2) 01/29/17 15:00 MCV 86.7 fl (80-96) 01/29/17 15:00 MCH 29.0 pg (25.7-33.7) 01/29/17 15:00 MCHC 33.4 g/dl (32.0-36.0) 01/29/17 15:00 RDW 13.5 % (11.6-15.6) 01/29/17 15:00 Plt Count 233 K/MM3 (134-434) 01/29/17 15:00 MPV 9.4 fl (7.5-11.1) 01/29/17 15:00 Sodium 141 mmol/L (136-145) 01/29/17 15:00 Potassium 4.4 mmol/L (3.5-5.1) 01/29/17 15:00 Chloride 107 mmol/L (98-107) 01/29/17 15:00 Carbon Dioxide 27 mmol/L (21-32) 01/29/17 15:00 Anion Gap 7 (8-16) L 01/29/17 15:00 BUN 12 mg/dL (7-18) D 01/29/17 15:00 Creatinine 0.7 mg/dL (0.55-1.02) 01/29/17 15:00 Creat Clearance w eGFR > 60 (>60) 01/29/17 15:00 Random Glucose 97 mg/dL (74-106) 01/29/17 15:00 Calcium 9.2 mg/dL (8.5-10.1) 01/29/17 15:00 Total Bilirubin 0.6 mg/dL (0.2-1.0) D 01/29/17 15:00 AST 17 U/L (15-37) D 01/29/17 15:00 ALT 19 U/L (12-78) 01/29/17 15:00 Alkaline Phosphatase 80 U/L (45-117) 01/29/17 15:00 Total Protein 6.8 g/dl (6.4-8.2) 01/29/17 15:00 Albumin 4.1 g/dl (3.4-5.0) D 01/29/17 15:00 Urine Color Yellow 01/29/17 14:00 Urine Appearance Clear 01/29/17 14:00 Urine pH 6.0 (5.0-8.0) 01/29/17 14:00 Ur Specific [place] 1.020 (1.005-1.025) 01/29/17 14:00 Urine Protein Negative (NEGATIVE) 01/29/17 14:00 Urine Glucose (UA) Negative (NEGATIVE) 01/29/17 14:00 Urine Ketones Trace (NEGATIVE) H 01/29/17 14:00 Urine Blood Negative (NEGATIVE) 01/29/17 14:00 Urine Nitrite Negative (NEGATIVE) 01/29/17 14:00 Urine Bilirubin Negative (NEGATIVE) 01/29/17 14:00 Urine Urobilinogen 2.0 mg/dL (0.2-1.0) H 01/29/17 14:00 Ur Leukocyte Esterase Negative (NEGATIVE) 01/29/17 14:00 RPR Titer Nonreactive (NONREACTIVE) 01/29/17 15:00 pt aox3 in nad ambulating Assessment: 01/31/17 12:09 withdrawal sx's toothache Plan: cont. detox increase fluids viscous lidocaine prn motrin prn adjust methadone detox protocol
[2017-01-31] MEDS: hydrOXYzine PAMOATE 25 MG CAPSULE (FP) PO PRN (20:04)
[2017-01-31] MEDS: THIAMINE HCL 100 MG TABLET (FP) PO SCH (22:47)
[2017-01-31] MEDS: ZOLPIDEM TARTRATE 10 MG TABLET (PARK CARE ONLY) PO PRN (22:47)
[2017-02-01] MEDS ORDERED: METHADONE HCL 10 MG TABLET (FOR DETOX USE ONLY) PO ONE (10:00)
[2017-02-01] MEDS ORDERED: METHADONE HCL 5 MG TABLET (FOR DETOX USE ONLY) PO ONE (10:00)
[2017-02-01] MEDS: PRENATAL VITAMINS W/ FOLIC ACID TABLET (FP) PO SCH (11:08)
[2017-02-01] MEDS: diazePAM 5 MG TABLET PO PRN (11:08)
[2017-02-01] MEDS: NICOTINE 21 MG/24 HOURS TOPICAL PATCH TD SCH (11:08)
[2017-02-01] MEDS: CYCLOBENZAPRINE HCL 10 MG TABLET (FP) PO PRN ×2 (11:08→22:55)
[2017-02-01] MEDS: NICOTINE POLACRILEX 4 MG GUM BUC PRN ×3 (11:09→20:30)
[2017-02-01] MEDS: hydrOXYzine PAMOATE 25 MG CAPSULE (FP) PO PRN ×2 (12:54→17:33)
--- NOTE | 2017-02-01 16:04 | PN ---
S Progress Note (SOAP) Subjective: alert,irritable,anxious,interrupted sleep,pain in he body Objective: 02/01/17 16:03 Vital Signs Temperature 98.1 F 02/01/17 14:42 Pulse Rate 89 02/01/17 14:42 Respiratory Rate 20 02/01/17 14:42 Blood Pressure 104/61 02/01/17 14:42 O2 Sat by Pulse Oximetry (%) Assessment: 02/01/17 16:03 withdrawal symptom Plan: continue detox
[2017-02-01] MEDS: ZOLPIDEM TARTRATE 10 MG TABLET (PARK CARE ONLY) PO PRN (22:55)
[2017-02-01] MEDS: THIAMINE HCL 100 MG TABLET (FP) PO SCH (22:55)
[2017-02-02] MEDS: hydrOXYzine PAMOATE 25 MG CAPSULE (FP) PO PRN (05:45)
[2017-02-02] MEDS ORDERED: METHADONE HCL 5 MG TABLET (FOR DETOX USE ONLY) PO ONE (06:00)
[2017-02-02 07:00] VITALS: BP 108/74; PULSE 97; TEMP 97.8
[2017-02-02] MEDS: NICOTINE POLACRILEX 4 MG GUM BUC PRN (07:41)
--- NOTE | 2017-02-02 08:30 | DS ---
[facility] Detox Discharge Summary Admission Date: 01/29/17 Discharge Date: 02/02/17 - History Present History: Opioid Dependence Additional Comments: FOLLOW UP WITH AFTER CARE PROGRAM ARRANGEMENT Pertinent Past History: NICOTINE DEPENDENCE - Physical Exam Results Vital Signs: Vital Signs Temperature 97.8 F 02/02/17 06:59 Pulse Rate 97 H 02/02/17 06:59 Respiratory Rate 18 02/02/17 06:59 Blood Pressure 108/74 02/02/17 06:59 O2 Sat by Pulse Oximetry (%) Pertinent Admission Physical Exam Findings: WITHDRAWAL SYMPTOM - Treatment Hospital Course: Detox Protocol Followed, Detoxed Safely, Responded well, Discharged Condition Good Patient has Accepted a Rehab Referral to: DECLINED - Medication Discharge Medications: Ambulatory Orders NK [No Known Home Medication] 12/17/16 - AMA Did Patient Leave Against Medical Advice: No
[2017-02-02] MEDS: PRENATAL VITAMINS W/ FOLIC ACID TABLET (FP) PO SCH (09:46)
[2017-02-02] MEDS: NICOTINE 21 MG/24 HOURS TOPICAL PATCH TD SCH (09:46)
[2017-02-02] MEDS ORDERED: METHADONE HCL 10 MG TABLET (FOR DETOX USE ONLY) PO ONE (10:00)
[2017-02-03] MEDS ORDERED: METHADONE HCL 5 MG TABLET (FOR DETOX USE ONLY) PO ONE (06:00)
== END 2017-02-02 09:23 | disposition home or self-care (01) | DRG 773 ==
LOC: YASAS 08:19 → Y6N 12:26
PROVIDERS: ADMIT Internal Medicine Addiction Medicine; ATTEND Internal Medicine Addiction Medicine
PROC: HZ2ZZZZ Detoxification Services for Substance Abuse Treatment (ICD-10-PCS; principal; 2017-02-02)
DX: F11.23 Opioid dependence with withdrawal (principal); F17.210 Nicotine dependence, cigarettes, uncomplicated; F19.24 Other psychoactive substance dependence with psychoactive substance-induced mood disorder; F19.282 Other psychoactive substance dependence with psychoactive substance-induced sleep disorder; G47.00 Insomnia, unspecified
CPT/HCPCS: 36415; 80053; 81003; 85027; 86593; 93005; 93010

== ENCOUNTER 2017-03-08 16:07 | Inpatient (IN) | payer OTHER ==
--- NOTE | 2017-03-08 19:45 | HP ---
COWS - Scale Resting Pulse: 0= [place] 80 or Below Sweatin= Chills/Flushing Restless Observation: 3= Extraneous Movement Pupil Size: 2= Moderately Dilated Bone or Joint Aches: 2= Severe Diffuse Aches Runny Nose/ Eye Tearin= Runny Nose/Eyes GI Upset > 30mins: 3= Vomiting/Diarrhea Tremor Observation: 2= Slight Tremor Visible Yawning Observation: 2= >3x During Session Anxiety or Irritability: 2=Irritable/Anxious Goose Flesh Skin: 0=Smooth Skin COWS Score: 19 Admission ROS S - HPI Chief Complaint: i need help to stop using heroin,cocaine Allergies/Adverse Reactions: Allergies Allergy/AdvReac Type Severity Reaction Status Date / Time No Known Allergies Allergy Verified 03/08/17 20:52 History of Present Illness: this 26 years old female with heroin and cocaine dependence,seeking detox,last [facility] 01/29/17 to 02/02/17 cellulitis with abscess both hand left elbow nicotine dependence anxiety,depression,insomnia Exam Limitations: No Limitations - Ebola screening Have you traveled outside of the country in the last 21 days: No Have you had contact with anyone from an Ebola affected area: No Do you have a fever: No - Review of Systems Constitutional: Chills, Loss of Appetite, Malaise, Night Sweats, Changes in sleep, Weakness EENT: reports: Tearing, Nose Congestion Respiratory: reports: No Symptoms reported Cardiac: reports: No Symptoms Reported GI: reports: Nausea, Poor Appetite, Vomiting, Abdominal cramping : reports: No Symptoms Reported Musculoskeletal: reports: Back Pain, Muscle Pain Integumentary: reports: Dryness Neuro: reports: Headache, Tremors Endocrine: reports: No Symptoms Reported Hematology: reports: No Symptoms Reported Psychiatric: reports: No Sypmtoms Reported, Judgement Intact, Mood/Affect Appropiate, Orientated x3 ([place]), Anxious, Depressed Patient History - Patient Medical History Hx Anemia: No Hx Asthma: No Hx Chronic Obstructive Pulmonary Disease (COPD): No Hx Cancer: No Hx Cardiac Disorders: No Hx Congestive Heart Failure: No Hx Hypertension: No Hx Hypercholesterolemia: No Hx Pacemaker: No HX Cerebrovascular Accident: No Hx Seizures: No Hx Dementia: No Hx Diabetes: No Hx Gastrointestinal Disorders: No Hx Liver Disease: No Hx Genitourinary Disorders: No Hx Sexually Transmitted Disorders: No Hx Renal Disease (ESRD): No Hx Thyroid Disease: No Hx Human Immunodeficiency Virus (HIV): No (NEGATIVE HX last 01/29/17) Hx Hepatitis C: No Hx Depression: Yes (NOT CURRENTLY ON MED) Hx Suicide Attempt: No (DENIES) Hx Bipolar Disorder: No Hx Schizophrenia: No Other Medical History: no suicidal,no homicidal - Patient Surgical History Past Surgical History: No Hx Neurologic Surgery: No Hx Cataract Extraction: No Hx Cardiac Surgery: No Hx Lung Surgery: No Hx Breast Surgery: No Hx Breast Biopsy: No Hx Abdominal Surgery: No Hx Appendectomy: No Hx Cholecystectomy: No Hx Genitourinary Surgery: No Hx Section: No Hx Orthopedic Surgery: No Hx Hysterectomy: No Anesthesia Reaction: No - PPD History Previous Implant?: Yes Documented Results: Negative w/proof Implanted On Prior [facility] Admission?: Yes Date: 12/19/16 Results: 0 MM PPD to be Administered?: No - Reproductive History Patient is a Female of Child Bearing Age (11 -55 yrs old): Yes Last Menstrual Period: 11/11/16 Patient : No - Smoking Cessation Smoking history: Current every day smoker Have you smoked in the past 12 months: Yes Aproximately how many cigarettes per day: 20 Hx Chewing Tobacco Use: No Initiated information on smoking cessation: Yes 'Breaking Loose' booklet given: 03/08/17 - Substance & Tx. History Hx Alcohol Use: No Hx Substance Use: Yes Substance Use Type: Cocaine, Heroin Hx Substance Use Treatment: Yes ([facility] 01/29/17 to 02/02/17) - Substances Abused Heroin Route: Injection Frequency: Daily Amount used: 5 to 10 bags Age of first use: 24 Date of Last Use: 03/08/17 Cocaine Route: Inhalation Frequency: 1-3 times last 30 days Amount used: 20$ Age of first use: 23 Date of Last Use: 03/03/17 Family Disease History - Family Disease History Family Disease History: Other: Father (ETOH DEPENDENCE ) Admission Physical Exam BHS - Vital Signs Vital Signs: Vital Signs Temperature 98.9 F 03/08/17 20:13 Pulse Rate 73 03/08/17 20:13 Respiratory Rate 20 03/08/17 20:13 Blood Pressure 129/69 03/08/17 20:13 O2 Sat by Pulse Oximetry (%) - Physical General Appearance: Yes: Moderate Distress, Tremorous, Irritable, Sweating, Anxious HEENTM: Yes: Normal ENT Inspection, ABEL, Pharynx Normal Respiratory: Yes: Lungs Clear, Normal Breath Sounds, No Respiratory Distress Neck: Yes: Within Normal Limits, Supple, Trachea in good position Breast: Yes: Within Normal Limits Cardiology: Yes: Within Normal Limits, Regular Rhythm, Regular Rate, S1, S2 Abdominal: Yes: Within Normal Limits, Normal Bowel Sounds, Non Tender, Flat, Soft Genitourinary: Yes: Within Normal Limits Back: Yes: Normal Inspection, Muscle Spasm Musculoskeletal: Yes: full range of Motion, Back pain, Muscle Pain Extremities: Yes: Within Normal Limits, Normal Range of Motion, Tremors Neurological: Yes: director field services II-XII NML intact, Fully Oriented, Alert, Motor Strength 5/5 Integumentary: Yes: Dry Lymphatic: Yes: Within Normal Limits - Diagnostic (1) Nicotine dependence Current Visit: No Status: Acute Qualifiers: Nicotine product type: cigarettes Substance use status: in withdrawal Qualified Code(s): F17.213 - Nicotine dependence, cigarettes, with withdrawal (2) Opioid dependence with withdrawal Current Visit: No Status: Acute (3) Cellulitis and abscess of hand Current Visit: Yes Status: Acute (4) Anxiety and depression Current Visit: Yes Status: Acute (5) Insomnia Current Visit: No Status: Acute Cleared for Admission [facility] - Detox or Rehab [facility] Level of Care: Medically Managed Detox Regimen/Protocol: Methadone [facility] Breath Alcohol Content Breath Alcohol Content: 0 Vital Signs - Vital Signs Vital Signs Refused: No Temperature: 98.9 F Temperature Source: Oral Pulse Rate: 73 Respiratory Rate: 20 Blood Pressure: 129/69 BP Location: Left Arm - Height Height: 4 ft 10 in - Weight Weight: 134 lb Weight Measurement Method: Standing Scale Body Mass Index (BMI): 28.0 Urine Pregancy Test - Test Device Lot Number: [id number] Expiration Date: 10/11/18 - Control Horizontal Line in Upper Control Window?: Yes - Result Urine Test Results: Negative- NO Line Present Urine Drug Screen - Test Device Lot Number: [id number] Expiration Date: 12/11/18 - Control Is Test Valid: Yes - Results Drug Screen Negative: No Urine Drug Screen Results: FRANSISCA-Cocaine, OPI-Opiates
[2017-03-08] MEDS ORDERED: METHADONE HCL 10 MG TABLET (FOR DETOX USE ONLY) PO ONE ×2 (20:03→23:00)
[2017-03-08] MEDS ORDERED: MAGNESIUM HYDROX 2400MG/30ML ORAL SUSPENSION 30 ML CUP PO PRN (20:03)
[2017-03-08] MEDS ORDERED: P-EPHED 60MG/TRIPROLIDI 2.5MG TABLET PO PRN (20:03)
[2017-03-08] MEDS ORDERED: ACETAMINOPHEN 325 MG TABLET (FP) PO PRN (20:03)
[2017-03-08] MEDS ORDERED: MENTHOL/PHENOL 1 EACH UD MM PRN (20:03)
[2017-03-08] MEDS ORDERED: MAGNESIUM CITRATE 300 ML BOTTLE PO PRN (20:03)
[2017-03-08] MEDS ORDERED: guaiFENesin/D-METHORPHAN HB 10 ML UNIT-DOSE CUPS PO PRN (20:03)
[2017-03-08] MEDS ORDERED: diphenhydrAMINE HCL 50 MG CAPSULE PO PRN (20:03)
[2017-03-08] MEDS ORDERED: LOPERAMIDE HCL 2 MG CAPSULE PO PRN (20:03)
[2017-03-08] MEDS ORDERED: MAG HYDROX/AL HYDROX/SIMETH 30 ML UNIT-DOSE CUP PO PRN (20:03)
[2017-03-08 20:13] VITALS: BMI 28.0
[2017-03-08] MEDS: THIAMINE HCL 100 MG TABLET (FP) PO SCH (22:19)
[2017-03-08] MEDS: diazePAM 5 MG TABLET PO PRN (22:19)
[2017-03-08] MEDS: NICOTINE 21 MG/24 HOURS TOPICAL PATCH TD SCH (22:20)
[2017-03-09] MEDS: diazePAM 5 MG TABLET PO PRN ×4 (05:51→22:06)
[2017-03-09] MEDS: CLINDAMYCIN HCL 150 MG CAPSULE (FP) PO SCH ×5 (06:41→23:14)
[2017-03-09] MEDS ORDERED: METHADONE HCL 10 MG TABLET (FOR DETOX USE ONLY) PO ONE (10:00)
[2017-03-09 10:06] LABS: MCH 28.8 pg (25.7-33.7); MCHC 33.7 g/dl (32.0-36.0); MEAN CELL VOLUME 85.4 fl (80-96); MEAN PLT VOLUME 9.2 fl (7.5-11.1); PLATELET COUNT 197 K/MM3 (134-434); RDW 14.2 % (11.6-15.6); WHITE BLOOD COUNT 6.3 K/mm3 (4.0-10.0)
--- NOTE | 2017-03-09 10:08 | PN ---
BHS COWS - Scale Resting Pulse: 0= [place] 80 or Below Sweatin= Chills/Flushing Restless Observation: 3= Extraneous Movement Pupil Size: 1= Pupils >than Normal Bone or Joint Aches: 2= Severe Diffuse Aches Runny Nose/ Eye Tearin= Runny Nose/Eyes GI Upset > 30mins: 2= Nausea/Diarrhea Tremor Observation of Outstretched Hands: 2= Slight Tremor Visible Yawning Observation: 1= 1-2x During Session Anxiety or Irritability: 2=Irritable/Anxious Goose Flesh Skin: 0=Smooth Skin COWS Score: 16 BHS Progress Note (SOAP) Subjective: ALERT,IRRITABLE,ANXIOUS,INTERRUPTED SLEEP,PAIN IN THE BODY AND BACK Objective: 03/09/17 10:05 Vital Signs Temperature 98.9 F 03/09/17 07:37 Pulse Rate 73 03/09/17 07:37 Respiratory Rate 20 03/09/17 07:37 Blood Pressure 129/69 03/09/17 07:37 O2 Sat by Pulse Oximetry (%) EKG NSR WITH SINUS ARRHYTHMIA NO CHEST PAIN,NO SOB,NO DIZZINESS 03/09/17 10:07 LABS PENDING Assessment: 03/09/17 10:07 WITHDRAWAL SYMPTOM Plan: CONTINUE DETOX
[2017-03-09 10:09] LABS: ALBUMIN 3.2 g/dl (3.4-5.0); ANION GAP 6 (8-16); CALCIUM 8.7 mg/dL (8.5-10.1); CO2 26 mmol/L (21-32); GLUCOSE,RANDOM 85 mg/dL (74-106)
[2017-03-09 10:14] LABS: ALK PHOS 72 U/L (45-117); BILIRUBIN,TOTAL 0.6 mg/dL (0.2-1.0); CREATININE 0.7 mg/dL (0.55-1.02); SGOT/AST 14 U/L (15-37); SGPT/ALT 20 U/L (12-78); TOT PROT 5.9 g/dl (6.4-8.2)
[2017-03-09] MEDS: PRENATAL VITAMINS W/ FOLIC ACID TABLET (FP) PO SCH (10:41)
[2017-03-09] MEDS: NICOTINE 21 MG/24 HOURS TOPICAL PATCH TD SCH (10:44)
[2017-03-09] MEDS: NICOTINE POLACRILEX 2 MG GUM BC PRN ×2 (10:45→15:44)
[2017-03-09 11:08] LABS: HIV 1 & 2 AB NEGATIVE; HIV 1 AGp24 NEGATIVE
[2017-03-09 12:40] LABS: URINE APPEARANCE SLCLOUDY; URINE BILIRUBIN NEGATIVE (NEGATIVE); URINE BLOOD NEGATIVE (NEGATIVE); URINE COLOR YELLOW; URINE GLUCOSE (UA) NEGATIVE (NEGATIVE); URINE KETONE NEGATIVE (NEGATIVE); URINE LEUK ESTERASE NEGATIVE (NEGATIVE); URINE NITRITE NEGATIVE (NEGATIVE); URINE PROTEIN NEGATIVE (NEGATIVE); URINE UROBILINOGEN NEGATIVE mg/dL (0.2-1.0)
[2017-03-09] MEDS: THIAMINE HCL 100 MG TABLET (FP) PO SCH (22:06)
[2017-03-09] MEDS: IBUPROFEN 400 MG TABLET (FP) PO PRN (23:36)
[2017-03-10] MEDS: CLINDAMYCIN HCL 150 MG CAPSULE (FP) PO SCH ×4 (05:17→23:03)
[2017-03-10] MEDS: diazePAM 5 MG TABLET PO PRN ×4 (05:18→22:11)
--- NOTE | 2017-03-10 07:31 | CONSULT ---
[facility] Psychiatric Consult - Data Date of interview: 03/10/17 Admission source: [facility] Identifying data: This is 26 years old female with nompsychiatric hospitalization history intoxiocated with: Cocianme, Heroin and Nicotine Substance Abuse History: - Smoking Cessation. Smoking history: Current every day smoker. Have you smoked in the past 12 months: Yes. Aproximately how many cigarettes per day: 20. Hx Chewing Tobacco Use: No. Initiated information on smoking cessation: Yes. 'Breaking Loose' booklet given: 03/08/17. - Substance & Tx. History. Hx Alcohol Use: No. Hx Substance Use: Yes. Substance Use Type : Cocaine, Heroin. Hx Substance Use Treatment: Yes ([facility] 01/29/17 to 02/02/17) . - Substances Abused. Heroin. Route: Injection. Frequency: Daily. Amount used: 5 to 10 bags. Age of first use: 24. Date of Last Use: 03/08/17. Cocaine. Route: Inhalation. Frequency: 1-3 times last 30 days. Amount used : 20$. Age of first use: 23. Date of Last Use: 03/03/17 Medical History: Cellulitis history Psychiatric History: Patient reports history of depressioj and anxiety, reports insomnia, reports taking prior to admission: Ambien 1o mg po qhs Physical/Sexual Abuse/Trauma History: Denies Additional Comment: Ambien 1o mg po qhs prn Mental Status Exam - Mental Status Exam Alert and Oriented to: Person Cognitive Function: Fair Patient Appearance: Unkempt Mood: Sad Affect: Mood Congruent Patient Behavior: Cooperative Speech Pattern: Appropriate Voice Loudness: Normal Thought Process: Goal Oriented Thought Disorder: Being Controlled Hallucinations: Denies Suicidal Ideation: Denies Homicidal Ideation: Denies Insight/Judgement: Fair Sleep: Difficulty falling asleep Appetite: Fair Muscle strength/Tone: Mild Hypotonicity Gait/Station: Shuffling Additional Comments: Ambien 1o mg po qhs prn Psychiatric Findings - Problem List ([place] 1, 2,3) (1) Anxiety and depression Current Visit: Yes Status: Acute (2) Cellulitis and abscess of hand Current Visit: Yes Status: Acute (3) Cocaine abuse Current Visit: Yes Status: Acute (4) Drug-induced mood disorder Current Visit: No Status: Acute (5) Nicotine dependence Current Visit: No Status: Acute Qualifiers: Nicotine product type: cigarettes Substance use status: in withdrawal Qualified Code(s): F17.213 - Nicotine dependence, cigarettes, with withdrawal (6) Opioid dependence with withdrawal Current Visit: No Status: Acute (7) Opioid-induced sleep disorder, insomnia type, with onset during discontinuation/withdrawal Current Visit: No Status: Acute - Initial Treatment Plan Initial Treatment Plan: Ambien 1o mg po qhs prn
[2017-03-10] MEDS ORDERED: METHADONE HCL 5 MG TABLET (FOR DETOX USE ONLY) PO ONE (10:00)
[2017-03-10] MEDS: PRENATAL VITAMINS W/ FOLIC ACID TABLET (FP) PO SCH (10:27)
[2017-03-10] MEDS: NICOTINE 21 MG/24 HOURS TOPICAL PATCH TD SCH (10:28)
--- NOTE | 2017-03-10 10:45 | PN ---
BHS COWS - Scale Resting Pulse: 1= [place] 81-100 Sweatin= Chills/Flushing Restless Observation: 3= Extraneous Movement Pupil Size: 1= Pupils >than Normal Bone or Joint Aches: 2= Severe Diffuse Aches Runny Nose/ Eye Tearin= Runny Nose/Eyes GI Upset > 30mins: 2= Nausea/Diarrhea Tremor Observation of Outstretched Hands: 2= Slight Tremor Visible Yawning Observation: 1= 1-2x During Session Anxiety or Irritability: 2=Irritable/Anxious Goose Flesh Skin: 0=Smooth Skin COWS Score: 17 S Progress Note (SOAP) Subjective: ALERT,IRRITABLE,ANXIOUS,INTERRUPTED SLEEP,TREMOR,PAIN IN THE BODY AND BACK Objective: 03/10/17 10:44 Vital Signs Temperature 98.2 F 03/10/17 10:00 Pulse Rate 92 H 03/10/17 10:00 Respiratory Rate 20 03/10/17 10:00 Blood Pressure 108/66 03/10/17 10:00 O2 Sat by Pulse Oximetry (%) Laboratory Last Values WBC 6.3 K/mm3 (4.0-10.0) 03/09/17 07:50 RBC 4.34 M/mm3 (3.60-5.2) 03/09/17 07:50 Hgb 12.5 GM/dL (10.7-15.3) D 03/09/17 07:50 Hct 37.1 % (32.4-45.2) 03/09/17 07:50 MCV 85.4 fl (80-96) 03/09/17 07:50 MCH 28.8 pg (25.7-33.7) 03/09/17 07:50 MCHC 33.7 g/dl (32.0-36.0) 03/09/17 07:50 RDW 14.2 % (11.6-15.6) 03/09/17 07:50 Plt Count 197 K/MM3 (134-434) 03/09/17 07:50 MPV 9.2 fl (7.5-11.1) 03/09/17 07:50 Sodium 139 mmol/L (136-145) 03/09/17 07:50 Potassium 4.3 mmol/L (3.5-5.1) 03/09/17 07:50 Chloride 107 mmol/L (98-107) 03/09/17 07:50 Carbon Dioxide 26 mmol/L (21-32) 03/09/17 07:50 Anion Gap 6 (8-16) L 03/09/17 07:50 BUN 10 mg/dL (7-18) 03/09/17 07:50 Creatinine 0.7 mg/dL (0.55-1.02) 03/09/17 07:50 Creat Clearance w eGFR > 60 (>60) 03/09/17 07:50 Random Glucose 85 mg/dL (74-106) 03/09/17 07:50 Calcium 8.7 mg/dL (8.5-10.1) 03/09/17 07:50 Total Bilirubin 0.6 mg/dL (0.2-1.0) 03/09/17 07:50 AST 14 U/L (15-37) L 03/09/17 07:50 ALT 20 U/L (12-78) 03/09/17 07:50 Alkaline Phosphatase 72 U/L (45-117) 03/09/17 07:50 Total Protein 5.9 g/dl (6.4-8.2) L 03/09/17 07:50 Albumin 3.2 g/dl (3.4-5.0) L D 03/09/17 07:50 Urine Color Yellow 03/09/17 12:00 Urine Appearance Slcloudy 03/09/17 12:00 Urine pH 5.0 (5.0-8.0) 03/09/17 12:00 Ur Specific [place] >= 1.030 (1.005-1.025) H 03/09/17 12:00 Urine Protein Negative (NEGATIVE) 03/09/17 12:00 Urine Glucose (UA) Negative (NEGATIVE) 03/09/17 12:00 Urine Ketones Negative (NEGATIVE) 03/09/17 12:00 Urine Blood Negative (NEGATIVE) 03/09/17 12:00 Urine Nitrite Negative (NEGATIVE) 03/09/17 12:00 Urine Bilirubin Negative (NEGATIVE) 03/09/17 12:00 Urine Urobilinogen Negative mg/dL (0.2-1.0) 03/09/17 12:00 Ur Leukocyte Esterase Negative (NEGATIVE) 03/09/17 12:00 RPR Titer Nonreactive (NONREACTIVE) 03/09/17 07:50 HIV 1&2 Antibody Screen Negative 03/09/17 07:50 HIV P24 Antigen Negative 03/09/17 07:50 Assessment: 03/10/17 10:44 WITHDRAWAL SYMPTOM Plan: CONTINUE DETOX
[2017-03-10] MEDS: IBUPROFEN 400 MG TABLET (FP) PO PRN (11:43)
[2017-03-10] MEDS: NICOTINE POLACRILEX 2 MG GUM BC PRN (15:33)
--- NOTE | 2017-03-10 19:06 | EKG ---
Test Reason : Blood Pressure : / mmHG Vent. Rate : 068 BPM Atrial Rate : 068 BPM P-R Int : 154 ms QRS Dur : 082 ms QT Int : 382 ms P-R-T Axes : 014 018 028 degrees QTc Int : 406 ms SINUS RHYTHM WITH MARKED SINUS ARRHYTHMIA OTHERWISE NORMAL ECG WHEN COMPARED WITH ECG OF 29-JAN-2017 13:06, NO SIGNIFICANT CHANGE WAS FOUND Confirmed by VALENTINA CARR MD ([id number]) on 03/10/2017 7:06:19 PM Referred By: Confirmed By:VALENTINA CARR MD
[2017-03-10] MEDS: THIAMINE HCL 100 MG TABLET (FP) PO SCH (22:09)
[2017-03-11] MEDS: CLINDAMYCIN HCL 150 MG CAPSULE (FP) PO SCH ×3 (05:26→17:24)
[2017-03-11] MEDS: diazePAM 5 MG TABLET PO PRN ×4 (05:28→18:27)
[2017-03-11] MEDS ORDERED: METHADONE HCL 5 MG TABLET (FOR DETOX USE ONLY) PO ONE (10:00)
[2017-03-11] MEDS: NICOTINE 21 MG/24 HOURS TOPICAL PATCH TD SCH (10:12)
[2017-03-11] MEDS: PRENATAL VITAMINS W/ FOLIC ACID TABLET (FP) PO SCH (10:15)
--- NOTE | 2017-03-11 10:55 | PN ---
BHS Progress Note (SOAP) Subjective: ALERT,IRRITABLE,ANXIOUS,INTERRUPTED SLEEP,PAIN IN THE BODY Objective: 03/11/17 10:54 Vital Signs Temperature 96.8 F L 03/11/17 10:22 Pulse Rate 72 03/11/17 10:22 Respiratory Rate 18 03/11/17 10:22 Blood Pressure 127/54 03/11/17 10:22 O2 Sat by Pulse Oximetry (%) Assessment: 03/11/17 10:54 WITHDRAWAL SYMPTOM Plan: CONTINUE DETOX
[2017-03-11] MEDS: NICOTINE POLACRILEX 2 MG GUM BC PRN ×4 (12:36→23:21)
[2017-03-11] MEDS: THIAMINE HCL 100 MG TABLET (FP) PO SCH (22:08)
[2017-03-11] MEDS: ZOLPIDEM TARTRATE 5 MG TABLET PO PRN (22:08)
[2017-03-12] MEDS: CLINDAMYCIN HCL 150 MG CAPSULE (FP) PO SCH ×4 (01:32→17:06)
[2017-03-12] MEDS ORDERED: METHADONE HCL 10 MG TABLET (FOR DETOX USE ONLY) PO ONE (10:00)
[2017-03-12] MEDS: PRENATAL VITAMINS W/ FOLIC ACID TABLET (FP) PO SCH (10:23)
[2017-03-12] MEDS: NICOTINE 21 MG/24 HOURS TOPICAL PATCH TD SCH (10:23)
--- NOTE | 2017-03-12 10:35 | PN ---
[facility] Progress Note (SOAP) Subjective: nausea, sweats, itnerrupted sleep, anxiety,t remors, low back pain Objective: 03/12/17 10:34 Vital Signs - 8 hr 03/12/17 03/12/17 03/12/17 03:30 06:26 09:48 Temperature 97.9 F 97.9 F Pulse Rate 65 86 Respiratory 18 18 20 Rate Blood Pressure 122/70 101/52 Laboratory Tests 03/09/17 03/09/17 03/09/17 07:50 07:50 07:50 WBC 6.3 RBC 4.34 Hgb 12.5 D Hct 37.1 MCV 85.4 MCH 28.8 MCHC 33.7 RDW 14.2 Plt Count 197 MPV 9.2 Sodium 139 Potassium 4.3 Chloride 107 Carbon Dioxide 26 Anion Gap 6 L BUN 10 Creatinine 0.7 Creat Clearance w eGFR > 60 Random Glucose 85 Calcium 8.7 Total Bilirubin 0.6 AST 14 L ALT 20 Alkaline Phosphatase 72 Total Protein 5.9 L Albumin 3.2 L D Urine Color Urine Appearance Urine pH Ur Specific [place] Urine Protein Urine Glucose (UA) Urine Ketones Urine Blood Urine Nitrite Urine Bilirubin Urine Urobilinogen Ur Leukocyte Esterase RPR Titer Nonreactive HIV 1&2 Antibody Screen HIV P24 Antigen 03/09/17 03/09/17 07:50 12:00 WBC RBC Hgb Hct MCV MCH MCHC RDW Plt Count MPV Sodium Potassium Chloride Carbon Dioxide Anion Gap BUN Creatinine Creat Clearance w eGFR Random Glucose Calcium Total Bilirubin AST ALT Alkaline Phosphatase Total Protein Albumin Urine Color Yellow Urine Appearance Slcloudy Urine pH 5.0 Ur Specific [place] >= 1.030 H Urine Protein Negative Urine Glucose (UA) Negative Urine Ketones Negative Urine Blood Negative Urine Nitrite Negative Urine Bilirubin Negative Urine Urobilinogen Negative Ur Leukocyte Esterase Negative RPR Titer HIV 1&2 Antibody Screen Negative HIV P24 Antigen Negative Assessment: 03/12/17 10:35 withdrawal sx Plan: cont detox, fluids, encourage ambulation, naprosyn and flexeril for back pain
[2017-03-12] MEDS: NAPROXEN 500 MG TABLET (FP) PO SCH ×2 (11:37→22:08)
[2017-03-12] MEDS: NICOTINE POLACRILEX 2 MG GUM BC PRN ×2 (12:34→17:54)
[2017-03-12] MEDS: CYCLOBENZAPRINE HCL 10 MG TABLET (FP) PO SCH ×2 (13:07→22:08)
[2017-03-12] MEDS: hydrOXYzine PAMOATE 25 MG CAPSULE (FP) PO PRN (15:31)
[2017-03-12] MEDS: THIAMINE HCL 100 MG TABLET (FP) PO SCH (22:07)
[2017-03-12] MEDS: ZOLPIDEM TARTRATE 5 MG TABLET PO PRN (22:07)
[2017-03-13] MEDS: CLINDAMYCIN HCL 150 MG CAPSULE (FP) PO SCH ×2 (05:56→12:10)
[2017-03-13] MEDS: CYCLOBENZAPRINE HCL 10 MG TABLET (FP) PO SCH (05:56)
[2017-03-13] MEDS ORDERED: METHADONE HCL 5 MG TABLET (FOR DETOX USE ONLY) PO ONE (06:00)
--- NOTE | 2017-03-13 09:01 | DS ---
[facility] Detox Discharge Summary Admission Date: 03/08/17 Discharge Date: 03/13/17 - History Present History: Cocaine Dependence, Opioid Dependence Pertinent Past History: insomnia, anxiety, depression, nicotine dependence - Physical Exam Results Vital Signs: Vital Signs Temperature 97.7 F 03/13/17 06:36 Pulse Rate 63 03/13/17 06:36 Respiratory Rate 18 03/13/17 06:36 Blood Pressure 107/59 03/13/17 06:36 O2 Sat by Pulse Oximetry (%) Pertinent Admission Physical Exam Findings: withdrawal sx - Treatment Hospital Course: Detox Protocol Followed, Detoxed Safely, Responded well, Discharged Condition Good, Rehab Referral Accepted Patient has Accepted a Rehab Referral to: Yes - Medication Discharge Medications: Ambulatory Orders NK [No Known Home Medication] 12/17/16 - Diagnosis (1) Cellulitis and abscess of hand Current Visit: Yes Status: Acute (2) Cocaine abuse Current Visit: Yes Status: Chronic (3) Drug-induced mood disorder Current Visit: Yes Status: Acute (4) Insomnia Current Visit: Yes Status: Acute (5) Nicotine dependence Current Visit: Yes Status: Chronic Qualifiers: Nicotine product type: cigarettes Substance use status: in withdrawal Qualified Code(s): F17.213 - Nicotine dependence, cigarettes, with withdrawal (6) Opioid dependence with withdrawal Current Visit: Yes Status: Chronic (7) Opioid-induced sleep disorder, insomnia type, with onset during discontinuation/withdrawal Current Visit: Yes Status: Acute - AMA Did Patient Leave Against Medical Advice: No
[2017-03-13 09:31] VITALS: BP 109/63; PULSE 73; TEMP 96.8
[2017-03-13] MEDS: PRENATAL VITAMINS W/ FOLIC ACID TABLET (FP) PO SCH (10:28)
[2017-03-13] MEDS: NICOTINE 21 MG/24 HOURS TOPICAL PATCH TD SCH (10:28)
[2017-03-13] MEDS: hydrOXYzine PAMOATE 25 MG CAPSULE (FP) PO PRN (10:30)
[2017-03-13] MEDS: NAPROXEN 500 MG TABLET (FP) PO SCH (12:10)
[2017-03-13] MEDS: NICOTINE POLACRILEX 2 MG GUM BC PRN (12:18)
== END 2017-03-13 12:59 | disposition other institution (70) | DRG 773 ==
LOC: YASAS 16:07 → Y6N 19:50
PROVIDERS: ADMIT Internal Medicine Addiction Medicine; ATTEND Internal Medicine Addiction Medicine
PROC: HZ2ZZZZ Detoxification Services for Substance Abuse Treatment (ICD-10-PCS; principal; 2017-03-08)
DX: F11.23 Opioid dependence with withdrawal (principal); F11.282 Opioid dependence with opioid-induced sleep disorder; F14.10 Cocaine abuse, uncomplicated; F17.213 Nicotine dependence, cigarettes, with withdrawal; F19.24 Other psychoactive substance dependence with psychoactive substance-induced mood disorder; F41.8 Other specified anxiety disorders; G47.00 Insomnia, unspecified; L03.119 Cellulitis of unspecified part of limb; L02.519 Cutaneous abscess of unspecified hand
CPT/HCPCS: 36415; 80053; 81003; 85027; 86593; 87389; 93005; 93010

== ENCOUNTER 2017-03-13 13:08 | Inpatient (IN) | payer OTHER ==
[2017-03-13] MEDS ORDERED: NICOTINE POLACRILEX 2 MG GUM BUC PRN (14:02)
[2017-03-13] MEDS ORDERED: P-EPHED 60MG/TRIPROLIDI 2.5MG TABLET PO PRN (14:02)
[2017-03-13] MEDS ORDERED: MAG HYDROX/AL HYDROX/SIMETH 30 ML UNIT-DOSE CUP PO PRN (14:02)
[2017-03-13] MEDS ORDERED: MAGNESIUM CITRATE 300 ML BOTTLE PO PRN (14:02)
[2017-03-13] MEDS ORDERED: MAGNESIUM HYDROX 2400MG/30ML ORAL SUSPENSION 30 ML CUP PO PRN (14:02)
[2017-03-13] MEDS ORDERED: guaiFENesin/D-METHORPHAN HB 10 ML UNIT-DOSE CUPS PO PRN (14:02)
[2017-03-13] MEDS ORDERED: LOPERAMIDE HCL 2 MG CAPSULE PO PRN (14:02)
[2017-03-13] MEDS ORDERED: ACETAMINOPHEN 325 MG TABLET (FP) PO PRN (14:02)
[2017-03-13] MEDS ORDERED: diphenhydrAMINE HCL 50 MG CAPSULE PO PRN (14:02)
[2017-03-13] MEDS ORDERED: IBUPROFEN 400 MG TABLET (FP) PO PRN (14:02)
[2017-03-13] MEDS ORDERED: MENTHOL/PHENOL 1 EACH UD MM PRN (14:02)
[2017-03-13 14:10] VITALS: BMI 29.9
[2017-03-13] MEDS ORDERED: CLINDAMYCIN HCL 300 MG CAPSULE PO SCH (15:00)
--- NOTE | 2017-03-13 16:28 | HP ---
[facility]ONTENEGRO Rehab Assess/Revision - Admission History Admitted to Rehab from: [facility] Date of Admission to Rehab: 03/13/17 - Vital signs Vital Signs: Vital Signs Period Temp Pulse Resp BP Sys/Lindsay Pulse Ox Last 24 Hr 98.2 F-98.2 F 91-91 18-18 109-109/65-65 - Findings Detox History & Physical reviewed: Yes Concur with findings: Yes Comments/Additional Findings: transferred from detox to rehab admission as per protocol
[2017-03-13] MEDS: CLINDAMYCIN HCL 150 MG CAPSULE (FP) PO SCH ×2 (18:25→21:28)
[2017-03-13] MEDS: THIAMINE HCL 100 MG TABLET (FP) PO SCH (21:27)
[2017-03-13] MEDS: NAPROXEN 500 MG TABLET (FP) PO SCH (21:29)
[2017-03-13] MEDS ORDERED: PATIENT'S OWN MEDICATION (NON-FORMULARY) (Zolpidem Tartrate [Ambien] 10 MG) PO SCH (22:00)
[2017-03-14] MEDS ORDERED: NICOTINE 14 MG/24 HOURS TOPICAL PATCH TD SCH (10:00)
[2017-03-14] MEDS: CLINDAMYCIN HCL 150 MG CAPSULE (FP) PO SCH ×4 (10:23→21:37)
[2017-03-14] MEDS: NAPROXEN 500 MG TABLET (FP) PO SCH ×2 (10:23→21:38)
[2017-03-14] MEDS: PRENATAL VITAMINS W/ FOLIC ACID TABLET (FP) PO SCH (10:25)
[2017-03-14] MEDS: hydrOXYzine PAMOATE 50 MG CAPSULE (FP) PO PRN ×2 (10:27→15:03)
--- NOTE | 2017-03-14 11:46 | HP ---
Psychiatrist Admission - Data Date of interview: 03/14/17 Admission source: [address] [place] [address] Identifying data: This is the first admission to [address] [place] [address] rehabilitation for this 26 years old single H female ,unemployed,undomiciled. Medical History: H/O Cellulitis. Psychiatric History: Patient reports anxiety on and off,recently noticed that it affects her life.Didnt addressed this issue to psychiatrist in the past.patient was on Ambien 10 mg po hs while in detox for insomnia. Physical/Sexual Abuse/Trauma History: denies Vital Signs: Vital Signs - 24 hr 03/13/17 03/13/17 03/14/17 13:56 14:08 00:30 Temperature 98.2 F 98.2 F Pulse Rate 91 H 91 H Respiratory 18 18 18 Rate Blood Pressure 109/65 109/65 03/14/17 03/14/17 03:30 07:04 Temperature 98.1 F Pulse Rate 76 Respiratory 18 18 Rate Blood Pressure 105/68 Allergies/Adverse Reactions: Allergies Allergy/AdvReac Type Severity Reaction Status Date / Time No Known Allergies Allergy Verified 03/08/17 20:52 Date of last physical exam: 03/08/17 Concur with the findings of this exam: Yes - Substance Abuse/Tx History Hx Alcohol Use: Yes (socially) Hx Substance Use: Yes (reports taking pain killers since 23,heroin iv since 24 yo,cocaine since 23) Substance Use Type: Cocaine, Heroin Hx Substance Use Treatment: Yes (this is her first inpatient rehab treatment, longest abstinence 2 weeks) - Admission Criteria Previous failed treatment: Yes Poor recovery environment: Yes Comorbidities: Yes Lacks judgement: Yes Mental Status Exam - Mental Status Exam Alert and Oriented to: Time, Place, Person Cognitive Function: Grossly Intact Patient Appearance: Unkempt Mood: Anxious, Expansive Affect: Mood Congruent, Labile Patient Behavior: Cooperative Speech Pattern: Clear Voice Loudness: Normal Thought Process: Intact Thought Disorder: Not Present Hallucinations: Denies Suicidal Ideation: Denies Homicidal Ideation: Denies Insight/Judgement: Fair Sleep: Fair Appetite: Fair Muscle strength/Tone: Normal Gait/Station: Normal Psychiatric Findings - Problem List (Allen 1, 2,3) (1) Cellulitis and abscess of hand Current Visit: Yes Status: Inactive (2) Drug-induced mood disorder Current Visit: Yes Status: Chronic (3) Nicotine dependence Current Visit: Yes Status: Chronic Qualifiers: Nicotine product type: cigarettes Substance use status: in withdrawal Qualified Code(s): F17.213 - Nicotine dependence, cigarettes, with withdrawal (4) Opioid dependence Current Visit: Yes Status: Chronic (5) Cocaine dependence Current Visit: Yes Status: Chronic - Initial Treatment Plan Initial Treatment Plan: Trazodone 100 mg po hs.will monitor progress.
[2017-03-14] MEDS: NICOTINE 21 MG/24 HOURS TOPICAL PATCH TD SCH (13:00)
[2017-03-14] MEDS: cloNIDine HCL 0.1 MG TABLET PO SCH ×2 (13:01→21:38)
[2017-03-14] MEDS: CYCLOBENZAPRINE HCL 10 MG TABLET (FP) PO SCH ×2 (13:01→21:38)
[2017-03-14] MEDS: PANTOPRAZOLE 40 MG TABLET (FP) PO SCH (13:01)
[2017-03-14] MEDS: NICOTINE POLACRILEX 4 MG GUM BUC PRN ×2 (13:03→18:20)
[2017-03-14] MEDS: traZODone HCL 100 MG TABLET (FP) PO SCH (21:38)
[2017-03-14] MEDS: THIAMINE HCL 100 MG TABLET (FP) PO SCH (21:38)
[2017-03-15] MEDS: CYCLOBENZAPRINE HCL 10 MG TABLET (FP) PO SCH ×3 (06:58→21:40)
[2017-03-15] MEDS: NAPROXEN 500 MG TABLET (FP) PO SCH ×2 (09:55→21:40)
[2017-03-15] MEDS: CLINDAMYCIN HCL 150 MG CAPSULE (FP) PO SCH ×4 (09:55→21:40)
[2017-03-15] MEDS: NICOTINE 21 MG/24 HOURS TOPICAL PATCH TD SCH (09:55)
[2017-03-15] MEDS: PANTOPRAZOLE 40 MG TABLET (FP) PO SCH (09:55)
[2017-03-15] MEDS: PRENATAL VITAMINS W/ FOLIC ACID TABLET (FP) PO SCH (09:55)
[2017-03-15] MEDS: cloNIDine HCL 0.1 MG TABLET PO SCH ×2 (09:59→21:40)
[2017-03-15] MEDS: NICOTINE POLACRILEX 4 MG GUM BUC PRN (13:34)
[2017-03-15] MEDS ORDERED: ONDANSETRON *ODT* 4 MG TABLET SL PRN (16:58)
[2017-03-15] MEDS ORDERED: ONDANSETRON *ODT* 4 MG TABLET SL ONE (16:58)
[2017-03-15] MEDS: THIAMINE HCL 100 MG TABLET (FP) PO SCH (21:40)
[2017-03-15] MEDS: traZODone HCL 100 MG TABLET (FP) PO SCH (21:40)
[2017-03-15] MEDS: hydrOXYzine PAMOATE 50 MG CAPSULE (FP) PO PRN (23:10)
[2017-03-16] MEDS: CYCLOBENZAPRINE HCL 10 MG TABLET (FP) PO SCH ×3 (06:38→21:28)
[2017-03-16] MEDS: PANTOPRAZOLE 40 MG TABLET (FP) PO SCH (10:05)
[2017-03-16] MEDS: cloNIDine HCL 0.1 MG TABLET PO SCH ×2 (10:05→21:28)
[2017-03-16] MEDS: NICOTINE 21 MG/24 HOURS TOPICAL PATCH TD SCH (10:05)
[2017-03-16] MEDS: NAPROXEN 500 MG TABLET (FP) PO SCH ×2 (10:05→21:28)
[2017-03-16] MEDS: CLINDAMYCIN HCL 150 MG CAPSULE (FP) PO SCH ×4 (10:05→21:28)
[2017-03-16] MEDS: PRENATAL VITAMINS W/ FOLIC ACID TABLET (FP) PO SCH (10:05)
[2017-03-16] MEDS: hydrOXYzine PAMOATE 50 MG CAPSULE (FP) PO PRN ×2 (12:57→19:02)
[2017-03-16] MEDS: NICOTINE POLACRILEX 4 MG GUM BUC PRN (12:58)
[2017-03-16] MEDS: THIAMINE HCL 100 MG TABLET (FP) PO SCH (21:28)
[2017-03-16] MEDS: traZODone HCL 100 MG TABLET (FP) PO SCH (21:28)
[2017-03-17] MEDS: CYCLOBENZAPRINE HCL 10 MG TABLET (FP) PO SCH ×3 (06:28→21:30)
[2017-03-17] MEDS: cloNIDine HCL 0.1 MG TABLET PO SCH ×2 (10:01→21:30)
[2017-03-17] MEDS: CLINDAMYCIN HCL 150 MG CAPSULE (FP) PO SCH ×4 (10:01→21:31)
[2017-03-17] MEDS: PRENATAL VITAMINS W/ FOLIC ACID TABLET (FP) PO SCH (10:02)
[2017-03-17] MEDS: PANTOPRAZOLE 40 MG TABLET (FP) PO SCH (10:02)
[2017-03-17] MEDS: NAPROXEN 500 MG TABLET (FP) PO SCH ×2 (10:02→21:30)
[2017-03-17] MEDS: NICOTINE 21 MG/24 HOURS TOPICAL PATCH TD SCH (10:03)
[2017-03-17] MEDS: NICOTINE POLACRILEX 4 MG GUM BUC PRN ×3 (11:01→21:33)
[2017-03-17] MEDS: hydrOXYzine PAMOATE 50 MG CAPSULE (FP) PO PRN ×2 (17:38→21:59)
[2017-03-17] MEDS: THIAMINE HCL 100 MG TABLET (FP) PO SCH (21:30)
[2017-03-17] MEDS: traZODone HCL 100 MG TABLET (FP) PO SCH (21:30)
[2017-03-18] MEDS: CYCLOBENZAPRINE HCL 10 MG TABLET (FP) PO SCH ×3 (06:32→21:29)
[2017-03-18] MEDS: NICOTINE 21 MG/24 HOURS TOPICAL PATCH TD SCH (10:22)
[2017-03-18] MEDS: CLINDAMYCIN HCL 150 MG CAPSULE (FP) PO SCH (10:22)
[2017-03-18] MEDS: PANTOPRAZOLE 40 MG TABLET (FP) PO SCH (10:22)
[2017-03-18] MEDS: NAPROXEN 500 MG TABLET (FP) PO SCH ×2 (10:22→21:29)
[2017-03-18] MEDS: cloNIDine HCL 0.1 MG TABLET PO SCH (10:22)
[2017-03-18] MEDS: PRENATAL VITAMINS W/ FOLIC ACID TABLET (FP) PO SCH (10:23)
--- NOTE | 2017-03-18 11:07 | PN ---
S Progress Note (SOAP) Subjective: Patient c/o continued symptoms of opioid withdrawal - sweats, insomnia, anxiety , interrupted sleep Objective: 03/18/17 11:04 Vital Signs - 24 hr 03/17/17 03/18/17 03/18/17 21:15 00:30 03:30 Temperature Pulse Rate 57 L Respiratory 16 16 Rate Blood Pressure 120/76 03/18/17 03/18/17 06:50 09:14 Temperature 97.1 F L Pulse Rate 52 L Respiratory 16 18 Rate Blood Pressure 109/64 97/64 injection abscess healed, no erythema, hyptensive on clonidine Assessment: 03/18/17 11:05 opioid withdrawal, healed injection site abscess, low bp from clonidine Plan: d/c clondine, recommended MAT with suboxone patient agrees to follow up in [facility], lives in [facility] start 2mg s/l today, d/c antibiotics. observe for any precipitated withdrawal. discussed plan of carwith nurses. Counseling staff to arrange for discharge planning. May have one week suboxone prescription when she leaves.
[2017-03-18] MEDS: BUPRENORPHINE/NALOXONE 2 MG/0.5 MG FILM PACKET SL SCH (11:31)
[2017-03-18] MEDS: THIAMINE HCL 100 MG TABLET (FP) PO SCH (21:29)
[2017-03-18] MEDS: traZODone HCL 100 MG TABLET (FP) PO SCH (21:29)
[2017-03-18] MEDS: hydrOXYzine PAMOATE 50 MG CAPSULE (FP) PO PRN (23:03)
[2017-03-18] MEDS: NICOTINE POLACRILEX 4 MG GUM BUC PRN (23:04)
[2017-03-19] MEDS: CYCLOBENZAPRINE HCL 10 MG TABLET (FP) PO SCH ×3 (06:20→21:28)
[2017-03-19] MEDS: NICOTINE POLACRILEX 4 MG GUM BUC PRN ×3 (08:39→17:31)
[2017-03-19] MEDS: hydrOXYzine PAMOATE 50 MG CAPSULE (FP) PO PRN ×2 (08:39→17:31)
[2017-03-19] MEDS: NICOTINE 21 MG/24 HOURS TOPICAL PATCH TD SCH (10:20)
[2017-03-19] MEDS: BUPRENORPHINE/NALOXONE 2 MG/0.5 MG FILM PACKET SL SCH (10:21)
[2017-03-19] MEDS: PRENATAL VITAMINS W/ FOLIC ACID TABLET (FP) PO SCH (10:21)
[2017-03-19] MEDS: NAPROXEN 500 MG TABLET (FP) PO SCH ×2 (10:21→21:28)
[2017-03-19] MEDS: MIRTAZAPINE 15 MG TABLET (FP) PO SCH (21:28)
[2017-03-19] MEDS: THIAMINE HCL 100 MG TABLET (FP) PO SCH (21:28)
[2017-03-20] MEDS: CYCLOBENZAPRINE HCL 10 MG TABLET (FP) PO SCH ×3 (06:09→21:17)
[2017-03-20] MEDS: NICOTINE POLACRILEX 4 MG GUM BUC PRN ×4 (07:21→21:18)
[2017-03-20] MEDS: NAPROXEN 500 MG TABLET (FP) PO SCH ×2 (09:50→21:17)
[2017-03-20] MEDS: NICOTINE 21 MG/24 HOURS TOPICAL PATCH TD SCH (09:51)
[2017-03-20] MEDS: PRENATAL VITAMINS W/ FOLIC ACID TABLET (FP) PO SCH (09:51)
[2017-03-20] MEDS: BUPRENORPHINE/NALOXONE 2 MG/0.5 MG FILM PACKET SL SCH (09:58)
[2017-03-20] MEDS: hydrOXYzine PAMOATE 50 MG CAPSULE (FP) PO PRN ×2 (11:54→22:47)
[2017-03-20] MEDS: MIRTAZAPINE 15 MG TABLET (FP) PO SCH (21:17)
[2017-03-20] MEDS: THIAMINE HCL 100 MG TABLET (FP) PO SCH (21:17)
[2017-03-21] MEDS: CYCLOBENZAPRINE HCL 10 MG TABLET (FP) PO SCH ×3 (06:10→21:27)
[2017-03-21] MEDS: NICOTINE POLACRILEX 4 MG GUM BUC PRN ×4 (06:53→17:42)
[2017-03-21] MEDS: hydrOXYzine PAMOATE 50 MG CAPSULE (FP) PO PRN ×3 (06:53→17:41)
[2017-03-21] MEDS: NAPROXEN 500 MG TABLET (FP) PO SCH ×2 (10:17→21:27)
[2017-03-21] MEDS: PRENATAL VITAMINS W/ FOLIC ACID TABLET (FP) PO SCH (10:17)
[2017-03-21] MEDS: BUPRENORPHINE/NALOXONE 2 MG/0.5 MG FILM PACKET SL SCH (10:18)
[2017-03-21] MEDS: NICOTINE 21 MG/24 HOURS TOPICAL PATCH TD SCH (10:18)
[2017-03-21] MEDS: THIAMINE HCL 100 MG TABLET (FP) PO SCH (21:27)
[2017-03-21] MEDS: traZODone HCL 50 MG TABLET (FP) PO SCH (21:27)
[2017-03-22] MEDS: CYCLOBENZAPRINE HCL 10 MG TABLET (FP) PO SCH ×3 (06:32→21:25)
[2017-03-22] MEDS: hydrOXYzine PAMOATE 50 MG CAPSULE (FP) PO PRN ×4 (06:32→21:24)
[2017-03-22] MEDS: NICOTINE POLACRILEX 4 MG GUM BUC PRN ×5 (08:49→21:25)
[2017-03-22] MEDS: PRENATAL VITAMINS W/ FOLIC ACID TABLET (FP) PO SCH (09:43)
[2017-03-22] MEDS: NICOTINE 21 MG/24 HOURS TOPICAL PATCH TD SCH (09:44)
[2017-03-22] MEDS: NAPROXEN 500 MG TABLET (FP) PO SCH ×2 (09:44→21:25)
[2017-03-22] MEDS: BUPRENORPHINE/NALOXONE 2 MG/0.5 MG FILM PACKET SL SCH (09:45)
[2017-03-22] MEDS: traZODone HCL 50 MG TABLET (FP) PO SCH (21:25)
[2017-03-22] MEDS: THIAMINE HCL 100 MG TABLET (FP) PO SCH (21:25)
[2017-03-23] MEDS: CYCLOBENZAPRINE HCL 10 MG TABLET (FP) PO SCH ×3 (06:20→21:17)
[2017-03-23] MEDS: hydrOXYzine PAMOATE 50 MG CAPSULE (FP) PO PRN ×3 (06:20→16:04)
[2017-03-23] MEDS: NICOTINE POLACRILEX 4 MG GUM BUC PRN ×3 (08:30→15:05)
[2017-03-23] MEDS: NICOTINE 21 MG/24 HOURS TOPICAL PATCH TD SCH (09:35)
[2017-03-23] MEDS: NAPROXEN 500 MG TABLET (FP) PO SCH ×2 (09:35→21:18)
[2017-03-23] MEDS: PRENATAL VITAMINS W/ FOLIC ACID TABLET (FP) PO SCH (09:36)
[2017-03-23] MEDS: BUPRENORPHINE/NALOXONE 2 MG/0.5 MG FILM PACKET SL SCH (09:36)
[2017-03-23] MEDS: traZODone HCL 50 MG TABLET (FP) PO SCH (21:17)
[2017-03-23] MEDS: THIAMINE HCL 100 MG TABLET (FP) PO SCH (21:18)
[2017-03-24] MEDS: hydrOXYzine PAMOATE 50 MG CAPSULE (FP) PO PRN ×2 (06:28→12:04)
[2017-03-24] MEDS: CYCLOBENZAPRINE HCL 10 MG TABLET (FP) PO SCH ×3 (06:28→21:08)
[2017-03-24] MEDS: NICOTINE POLACRILEX 4 MG GUM BUC PRN ×3 (08:44→16:01)
[2017-03-24] MEDS: PRENATAL VITAMINS W/ FOLIC ACID TABLET (FP) PO SCH (10:06)
[2017-03-24] MEDS: NICOTINE 21 MG/24 HOURS TOPICAL PATCH TD SCH (10:06)
[2017-03-24] MEDS: BUPRENORPHINE/NALOXONE 2 MG/0.5 MG FILM PACKET SL SCH (10:06)
[2017-03-24] MEDS: NAPROXEN 500 MG TABLET (FP) PO SCH ×2 (10:06→21:08)
[2017-03-24] MEDS: THIAMINE HCL 100 MG TABLET (FP) PO SCH (21:08)
[2017-03-24] MEDS: SUVOREXANT 10 MG TABLET PO PRN (21:09)
[2017-03-25] MEDS: CYCLOBENZAPRINE HCL 10 MG TABLET (FP) PO SCH ×3 (06:37→21:25)
[2017-03-25] MEDS: NICOTINE POLACRILEX 4 MG GUM BUC PRN ×3 (08:48→17:54)
[2017-03-25] MEDS: hydrOXYzine PAMOATE 50 MG CAPSULE (FP) PO PRN ×2 (08:49→13:08)
[2017-03-25] MEDS: NICOTINE 21 MG/24 HOURS TOPICAL PATCH TD SCH (10:17)
[2017-03-25] MEDS: PRENATAL VITAMINS W/ FOLIC ACID TABLET (FP) PO SCH (10:17)
[2017-03-25] MEDS: NAPROXEN 500 MG TABLET (FP) PO SCH ×2 (10:17→21:25)
[2017-03-25] MEDS: BUPRENORPHINE/NALOXONE 2 MG/0.5 MG FILM PACKET SL SCH (10:18)
[2017-03-25] MEDS: THIAMINE HCL 100 MG TABLET (FP) PO SCH (21:25)
[2017-03-25] MEDS: SUVOREXANT 10 MG TABLET PO PRN (21:25)
[2017-03-26] MEDS: CYCLOBENZAPRINE HCL 10 MG TABLET (FP) PO SCH ×3 (06:41→21:29)
[2017-03-26] MEDS: hydrOXYzine PAMOATE 50 MG CAPSULE (FP) PO PRN ×2 (06:41→12:33)
[2017-03-26] MEDS: NICOTINE POLACRILEX 4 MG GUM BUC PRN ×2 (08:28→12:33)
[2017-03-26] MEDS: NAPROXEN 500 MG TABLET (FP) PO SCH ×2 (10:03→21:29)
[2017-03-26] MEDS: PRENATAL VITAMINS W/ FOLIC ACID TABLET (FP) PO SCH (10:03)
[2017-03-26] MEDS: NICOTINE 21 MG/24 HOURS TOPICAL PATCH TD SCH (10:04)
[2017-03-26] MEDS: BUPRENORPHINE/NALOXONE 2 MG/0.5 MG FILM PACKET SL SCH (10:04)
--- NOTE | 2017-03-26 11:36 | PN ---
Psychiatric Progress Note Vital Signs: Vital Signs Period Temp Pulse Resp BP Sys/Lindsay Pulse Ox Last 24 Hr 97.8 F 80 16-18 118/86 Date of Session: 03/26/17 Chief Complaint:: Discharge visit. HPI: Patient addressed Opioid and Cocaine dependence comorbid with Substance induced mood disorder. ROS: unremarkable Current Medications: Active Medications Generic Name Dose Route Start Last Admin Trade Name Freq PRN Reason Stop Dose Admin Acetaminophen 650 mg 03/13/17 14:02 Tylenol - PO Q4H PRN FEVER OR PAIN Al Hydroxide/Mg Hydroxide 30 ml 03/13/17 14:02 Mylanta Oral Suspension - PO Q6H PRN DYSPEPSIA Buprenorphine/Naloxone 3 each 03/25/17 10:00 03/26/17 10:04 Suboxone 2mg/0.5mg Sl Film - SL 3 each DAILY JOE Administration Cyclobenzaprine HCl 10 mg 03/14/17 14:00 03/26/17 06:41 Flexeril - PO 10 mg TID JOE Administration Diphenhydramine HCl 50 mg 03/13/17 14:02 Benadryl - PO HSMR1 PRN FOR ITCHING Eucalyptus/Menthol/Phenol/Sorbitol 1 each 03/13/17 14:02 Cepastat Lozenge - MM Q4H PRN SORE THROAT Guaifenesin 10 ml 03/13/17 14:02 Robitussin Dm - PO Q6H PRN COUGH Hydroxyzine Pamoate 50 mg 03/13/17 14:02 03/26/17 06:41 Vistaril - PO 50 mg Q4H PRN Administration AGITATION Loperamide HCl 4 mg 03/13/17 14:02 Imodium - PO Q6H PRN DIARRHEA Magnesium Hydroxide 30 ml 03/13/17 14:02 Milk Of Magnesia - PO DAILY PRN CONSTIPATION Naproxen 500 mg 03/13/17 22:00 03/26/17 10:03 Naprosyn - PO 500 mg BID JOE Administration Nicotine 21 mg 03/14/17 11:15 03/26/17 10:04 Nicoderm Patch - TD 21 mg DAILY JOE Administration Nicotine Polacrilex 4 mg 03/13/17 14:05 03/26/17 08:28 Nicorette Gum - BUC 4 mg Q2H PRN Administration NICOTINE REPLACEMENT RX Ondansetron HCl 8 mg 03/15/17 16:58 Zofran Odt - SL Q8H PRN NAUSEA AND/OR VOMITING Multivit/Folic Acid/Iron 1 tab 03/14/17 10:00 03/26/17 10:03 Vitamins (Sjr) - PO Not Given DAILY JOE Pseudoephedrine/Triprolidine 1 combo 03/13/17 14:02 Actifed - PO TID PRN NASAL CONGESTION Thiamine HCl 100 mg 03/13/17 22:00 03/25/17 21:25 Vitamin B1 - PO 100 mg HS JOE Administration Current Side Effect: No Lab tests ordered: No Lab tests reviewed: Yes Provider note:: Patient will complete this program tomorrow .She has met her treatment goals and jessica continue to address her issues on outpatient basis at [facility] rehabilitation [facility].Patient will continueSuboxone 6 mg s/l daily.Patient identifies areas of difficulties and ways,support and coping skills she can utilize to maintain recovery. Supportive therapy provided. Total face to face time:: 25 Mental Status Exam - Mental Status Exam Alert and Oriented to: Time, Place, Person Cognitive Function: Grossly Intact Patient Appearance: Well Groomed Mood: Hopeful, Euthymic Affect: Appropriate, Mood Congruent Patient Behavior: Cooperative Speech Pattern: Clear Voice Loudness: Normal Thought Process: Goal Oriented Thought Disorder: Not Present Hallucinations: Denies Suicidal Ideation: Denies Homicidal Ideation: Denies Insight/Judgement: Fair Sleep: Fair Appetite: Fair Muscle strength/Tone: Normal Gait/Station: Normal Psychiatric Treatment Plan - Problem List (1) Drug-induced mood disorder Current Visit: Yes (2) Nicotine dependence Current Visit: Yes Qualifiers: Nicotine product type: cigarettes Substance use status: in withdrawal Qualified Code(s): F17.213 - Nicotine dependence, cigarettes, with withdrawal (3) Opioid dependence Current Visit: Yes (4) Cocaine dependence Current Visit: Yes
[2017-03-26] MEDS: THIAMINE HCL 100 MG TABLET (FP) PO SCH (21:29)
[2017-03-26] MEDS: SUVOREXANT 10 MG TABLET PO PRN (21:29)
[2017-03-27] MEDS: CYCLOBENZAPRINE HCL 10 MG TABLET (FP) PO SCH (06:34)
[2017-03-27] MEDS: hydrOXYzine PAMOATE 50 MG CAPSULE (FP) PO PRN (06:34)
[2017-03-27 07:29] VITALS: BP 130/85; PULSE 64; TEMP 97.9
[2017-03-27] MEDS: NICOTINE POLACRILEX 4 MG GUM BUC PRN (08:55)
[2017-03-27] MEDS: PRENATAL VITAMINS W/ FOLIC ACID TABLET (FP) PO SCH (10:43)
[2017-03-27] MEDS: NICOTINE 21 MG/24 HOURS TOPICAL PATCH TD SCH (10:43)
[2017-03-27] MEDS: NAPROXEN 500 MG TABLET (FP) PO SCH (10:43)
[2017-03-27] MEDS: BUPRENORPHINE/NALOXONE 2 MG/0.5 MG FILM PACKET SL SCH (10:44)
[2017-03-27] MEDS ORDERED: BUPRENORPHINE/NALOXONE 8 MG/2 MG FILM PACKET SL SCH (10:45)
--- NOTE | 2017-03-27 10:49 | PN ---
[facility] Progress Note (SOAP) Subjective: patient denies physical withdrawal sx or anxiety/insomnia on 2mg tid s/l suboxone which she is taking but still reports craving and a desire to use with obsessional thought Objective: 03/27/17 10:47 Vital Signs - 24 hr 03/27/17 03/27/17 03:30 07:29 Temperature 97.9 F Pulse Rate 64 Respiratory 16 16 Rate Blood Pressure 130/85 Assessment: 03/27/17 10:47 dose not yet adequate, patient still has cravings, no need for divided daily doses Plan: increase suboxone to 8/2 s/l daily qAM, will give first dose now as she has not had am suboxone today. d/c home today, f/u new focus today, will see Tracy Bob NP for suboxone maintenance program and counseling as needed to be determined by program. given suboxone 8mg s/l #7 prescription given to patient
--- NOTE | 2017-04-01 13:58 | HP ---
COWS - Scale Resting Pulse: 1= [place] 81-100 Sweatin= No chills or Flushing Restless Observation: 1= Difficult to Sit Still Pupil Size: 0= Normal to Room Light Bone or Joint Aches: 0= None Runny Nose/ Eye Tearin= None GI Upset > 30mins: 0= None Tremor Observation: 1= Tremor [place], Not Seen Yawning Observation: 0= None Anxiety or Irritability: 1=Feels Anxious/Irritable Goose Flesh Skin: 0=Smooth Skin COWS Score: 4 Admission ROS S - HPI Chief Complaint: I want to stop using heroin Allergies/Adverse Reactions: Allergies Allergy/AdvReac Type Severity Reaction Status Date / Time No Known Allergies Allergy Verified 03/08/17 20:52 History of Present Illness: 26 yo woman here for continued suboxone. Patient has two year history of heroin use - detoxed here in february then went to inpatient rehab and now outpatient [facility] 9-1 daily. States she has been cutting up the 8mg film and taking basically 12 mg and still with some withdrawal symptoms such as difficulty sleeping, restless and thinks about using - will increase to 8mg bid - counseled to avoid cutting strips. of note: urine tox + suboxone and benzo - patient denies taking any non prescribed benzodiazepine - states no one in her home takes it, she was not given it for any reason - last time valium was on 03/11 in detox. Exam Limitations: Clinical Condition - Ebola screening Have you traveled outside of the country in the last 21 days: No Have you had contact with anyone from an Ebola affected area: No Do you have a fever: No - Review of Systems Constitutional: Changes in sleep EENT: reports: No Symptoms Reported Respiratory: reports: No Symptoms reported Cardiac: reports: No Symptoms Reported GI: reports: No Symptoms Reported : reports: No Symptoms Reported Musculoskeletal: reports: No Symptoms Reported Integumentary: reports: No Symptoms Reported Neuro: reports: No Symptoms reported Endocrine: reports: No Symptoms Reported Hematology: reports: No Symptoms Reported Psychiatric: reports: Judgement Intact, Mood/Affect Appropiate, Orientated x3 Other Systems: Reviewed and Negative Patient History - Patient Medical History Hx Anemia: No Hx Asthma: No Hx Chronic Obstructive Pulmonary Disease (COPD): No Hx Cancer: No Hx Cardiac Disorders: No Hx Congestive Heart Failure: No Hx Hypertension: No Hx Hypercholesterolemia: No Hx Pacemaker: No HX Cerebrovascular Accident: No Hx Seizures: No Hx Dementia: No Hx Diabetes: No Hx Gastrointestinal Disorders: No Hx Liver Disease: No Hx Genitourinary Disorders: No Hx Sexually Transmitted Disorders: No Hx Renal Disease (ESRD): No Hx Thyroid Disease: No Hx Human Immunodeficiency Virus (HIV): No (NEGATIVE HX last 01/29/17) Hx Hepatitis C: No Hx Depression: Yes Hx Suicide Attempt: No Hx Bipolar Disorder: No Hx Schizophrenia: No - Patient Surgical History Past Surgical History: No Hx Neurologic Surgery: No Hx Cataract Extraction: No Hx Cardiac Surgery: No Hx Lung Surgery: No Hx Breast Surgery: No Hx Breast Biopsy: No Hx Abdominal Surgery: No Hx Appendectomy: No Hx Cholecystectomy: No Hx Genitourinary Surgery: No Hx Section: No Hx Orthopedic Surgery: No Hx Hysterectomy: No Anesthesia Reaction: No - PPD History Previous Implant?: Yes Documented Results: Negative w/proof Implanted On Prior [facility] Admission?: Yes Date: 12/19/16 Results: 0mm - Reproductive History Patient is a Female of Child Bearing Age (11 -55 yrs old): Yes Last Menstrual Period: 11/11/16 - Smoking Cessation Smoking history: Current every day smoker Have you smoked in the past 12 months: Yes Aproximately how many cigarettes per day: 20 Hx Chewing Tobacco Use: No Initiated information on smoking cessation: No 'Breaking Loose' booklet given: 03/02/17 - Substance & Tx. History Hx Alcohol Use: No Hx Substance Use: Yes Substance Use Type: Cocaine, Heroin Hx Substance Use Treatment: Yes (detox, rehab) - Substances Abused Heroin Route: Injection Frequency: Daily Amount used: 5-10 bags Age of first use: 24 Date of Last Use: 03/08/17 Cocaine Route: Inhalation Frequency: 1-3 times last 30 days Amount used: $ 20 Age of first use: 23 Date of Last Use: 03/03/17 Family Disease History - Family Disease History Family Disease History: Other: Father (, ETOH DEPENDENCE ), Mother ( living, multiple sclerosis), Sister (living, healthy) Admission Physical Exam [facility] - Vital Signs Vital Signs: 130/90 p 92 - Physical General Appearance: Yes: Nourished, Appropriately Dressed, Mild Distress HEENTM: Yes: Hearing grossly Normal, Normal ENT Inspection, Normocephalic, Normal Voice Respiratory: Yes: Normal Breath Sounds, No Respiratory Distress Neck: Yes: No masses,lesions,Nodules Breast: Yes: Breast Exam Deferred Cardiology: Yes: Regular Rhythm, Regular Rate Abdominal: Yes: Within Normal Limits Genitourinary: Yes: Within Normal Limits Back: Yes: Within Normal Limits, Normal Inspection Musculoskeletal: Yes: full range of Motion, Gait Steady Extremities: Yes: Within Normal Limits Neurological: Yes: Fully Oriented, Alert, Normal Mood/Affect, Normal Response Integumentary: Yes: Normal Color, Warm, Track Helms Lymphatic: Yes: Within Normal Limits - Diagnostic (1) Insomnia Status: Chronic Qualifiers: Insomnia type: unspecified Qualified Code(s): G47.00 - Insomnia, unspecified Comment: refer to psych (states ambien, remeron, trazadone, benadryl and vistaril did not work) (2) Nicotine dependence Status: Chronic Qualifiers: Nicotine product type: cigarettes Substance use status: in withdrawal Qualified Code(s): F17.213 - Nicotine dependence, cigarettes, with withdrawal Comment: not ready to quit (3) Opioid dependence Status: Chronic Qualifiers: Substance use status: in remission Qualified Code(s): F11.21 - Opioid dependence, in remission Comment: continue suboxone - increase to 8mg bid, treatment agreement reviewed and signed - safekeeping of medication emphasized, counseled to bring back wrappers for counting at next visit, [place] [employer] checked S Breath Alcohol Content Breath Alcohol Content: 0
== END 2017-03-27 10:55 | disposition home or self-care (01) | DRG 772 ==
LOC: YASAS 13:08 → Y3E 13:11
PROVIDERS: ADMIT Psychiatry & Neurology Psychiatry; ATTEND Psychiatry & Neurology Psychiatry
PROC: HZ42ZZZ Group Counseling for Substance Abuse Treatment, Cognitive-Behavioral (ICD-10-PCS; principal; 2017-03-13)
DX: F11.20 Opioid dependence, uncomplicated (principal); F14.20 Cocaine dependence, uncomplicated; F17.213 Nicotine dependence, cigarettes, with withdrawal; F19.24 Other psychoactive substance dependence with psychoactive substance-induced mood disorder; L03.119 Cellulitis of unspecified part of limb